=== PATIENT | male | born 1950 | race Caucasian/White ===

== ENCOUNTER 2019-02-03 16:30 | Inpatient (IN) ==
--- NOTE | 2019-02-03 16:46 | Emergency Department Note ---
Disposition Clinical Impression: Ureterolithiasis Disposition: Admitted As Inpatient Condition: Fair [facility] Provider[facility] - Forms: ED Satisfaction Letter, Work/School Release General Adult HPI - General Chief complaint: ED Abdominal Pain Stated complaint: kidney stones Time Seen by Provider: 02/03/19 16:36 Source: patient Limitations: no limitations Nursing Notes Reviewed: Yes Vital Signs Reviewed: Yes - History of Present Illness HPI Narrative: 37-year-old male presents emergency department with concern for left mid ureteral stone of 10 mm. Patient has history of ureterolithiasis requiring intervention in the past. He states that the pain started today. Patient was at the [facility]. He received a CT scan of the abdomen and pelvis that revealed the above findings. There was evidence of hydronephrosis as well. There was blood in his urine, but no evidence of nitrites and leukocyte esterase. Patient is given Toradol which controlled his pain, was feeding the patient, he states that he was in a lot of pain today and request that he stay in case the pain gets worse as he has experienced these stones in the past and has had issues with pain control and he does not feel comfortable going home. Pain Scale: 1 - Related Data Allergies Allergy/AdvReac Type Severity Reaction Status Date / Time Penicillins Allergy See Verified 02/03/19 16:35 Comments All systems ED: reviewed and negative except as stated. Review of Systems: As Per HPI Constitutional: Denies: fever Cardiovascular: Denies: chest pain Gastrointestinal: Reports: abdominal pain. Denies: nausea, vomiting Genitourinary: Denies: urgency, dysuria Musculoskeletal: Reports: back pain Past Medical History - Past Medical History Attestation: Yes The following information was validated with the patient. Source: patient Medical history: Reports: diabetes, hyperlipidemia, hypertension, other - Social History Smoking Status: Current every day smoker Smokeless Tobacco Status: No Alcohol use: Reports: none Drug use: Reports: none Physical Exam - General Limitations: no limitations General appearance: alert, in no apparent distress - Head Head exam: normocephalic - Eye Eye exam: Present: EOMI - ENT ENT exam: mucous membranes moist - Neck Neck exam: Present: trachea midline - Chest Chest inspection: Present: symmetric chest wall rise - Respiratory Respiratory exam: Present: normal lung sounds bilaterally. Absent: respiratory distress - Cardiovascular Cardiovascular exam: Present: regular rate, normal rhythm - Abdominal Exam Abdominal exam: Present: soft, tenderness. Absent: distention, guarding, rebound, rigidity - Extremities Exam Extremities exam: Present: normal capillary refill - Back Exam Back exam: Present: full ROM. Absent: CVA tenderness (R), CVA tenderness (L) - Neurological Exam Neurological exam: Present: alert, oriented X3 - Psychiatric Psychiatric exam: Present: normal affect, normal mood - Skin Skin exam: Present: warm, dry, intact, normal color. Absent: rash Course Vital Signs Temperature 97.6 F 02/03/19 16:35 Pulse Rate 71 02/03/19 16:35 Respiratory Rate 16 02/03/19 16:35 Blood Pressure 157/119 02/03/19 16:35 O2 Sat by Pulse Oximetry 99 02/03/19 16:35 Temperature 97.6 F 02/03/19 16:35 Pulse Rate 71 02/03/19 16:35 Respiratory Rate 16 02/03/19 16:35 Blood Pressure 157/119 02/03/19 16:35 O2 Sat by Pulse Oximetry 99 02/03/19 16:35 Oxygen Delivery Oxygen Delivery Room Air Medical Decision Making - MDM Narrative Medical decision making narrative: 68-year-old male with mid left ureteral stone requesting admission for pain control. Patient with hydronephrosis on CT scan, but no evidence of urinary tract infection [facility] I spoke to the urologist, Dr. Holden. He agreed to accept the patient in consult. Requested to admit to medicine. We have a CBC and BMP pending at time of admission. Patient was given pain medications before arrival, and admits to being comfortable now and not requesting pain meds, but is concerned that his symptoms could worsen throughout the evening. Dr. Holden requested that we hold him nothing by mouth at this time. Dr. Ordonez agree to accept the patient for admission. - Lab Data Result diagrams: 02/03/19 17:25
--- NOTE | 2019-02-03 17:01 | Emergency Department Note ---
Disposition Clinical Impression: Ureterolithiasis Disposition: Admitted As Inpatient Condition: Fair [facility]errals: [facility] [Primary Care Provider[facility] - Forms: ED Satisfaction Letter, Work/School Release Time of Disposition: 17:26 General Adult HPI - General Chief complaint: ED Abdominal Pain Stated complaint: kidney stones Time Seen by Provider: 02/03/19 16:36 Source: patient Limitations: no limitations - History of Present Illness Pain Scale: 1 - Related Data Allergies Allergy/AdvReac Type Severity Reaction Status Date / Time Penicillins Allergy See Verified 02/03/19 16:35 Comments Past Medical History - Past Medical History Medical history: Reports: diabetes, hyperlipidemia, hypertension, other - Social History Smoking Status: Current every day smoker Smokeless Tobacco Status: No Alcohol use: Reports: none Drug use: Reports: none Physical Exam - General Limitations: no limitations General appearance: alert, in no apparent distress Course Vital Signs Temperature 97.6 F 02/03/19 16:35 Pulse Rate 71 02/03/19 16:35 Respiratory Rate 16 02/03/19 16:35 Blood Pressure 157/119 02/03/19 16:35 O2 Sat by Pulse Oximetry 99 02/03/19 16:35 Temperature 97.6 F 02/03/19 16:35 Pulse Rate 71 02/03/19 16:35 Respiratory Rate 16 02/03/19 16:35 Blood Pressure 157/119 02/03/19 16:35 O2 Sat by Pulse Oximetry 99 02/03/19 16:35 Oxygen Delivery Oxygen Delivery Room Air Attestation Statement - Attestation Attestation: I examined this patient and my medical decision-making was reviewed with the Resident Physician. I agree with the documented findings, disposition and treatment plan as described except to the extent set forth below. Patient presents to the ED with a chief complaint of flank pain. Patient was seen at the [facility] and diagnosed with a 10 mm ureteral stone. He was sent here for urology evaluation. Patient has a long-standing history of stones since he was 22 years old. His pain is significantly improved after an Ultram. Patient left-sided CVA tenderness. Plan. We will admit with urology consult. Urology has been consult. Admitted to medicine. Pain control at this time.
[2019-02-03 17:59] LABS: Basophils # 0.1 K/mcL (0.0-0.2); Basophils % 0.4 %; Eosinophils # 0.3 K/mcL (0.0-0.6); Eosinophils % 1.5 %; Hematocrit 45.1 % (37.5-50.1); Hemoglobin 15.4 g/dL (12.9-16.9); Immature Granulocytes % 1.3 % (0-4); Lymphocytes # 3.2 K/mcL (0.6-4.6); Lymphocytes % 16.2 %; Mean Corpuscular HGB Conc 34.1 g/dL (31.6-35.5); Mean Corpuscular Hemoglobin 32.4 pg (28.0-33.3); Mean Corpuscular Volume 94.7 fL (83.0-100.0); Mean Platelet Volume 9.8 fL (9.4-12.4); Monocytes # 1.3 K/mcL (0.0-1.3); Monocytes % 6.5 %; Neutrophils # 14.5 K/mcL (1.6-8.9); Platelet Count 206 K/mcL (140-400); Red Blood Count 4.76 M/mcL (4.19-5.50); Red Cell Distribution Width 12.9 % (11.5-14.5); Segmented Neutrophils % 74.1 %
[2019-02-03 18:05] LABS: BUN/Creatinine Ratio 31 (6-26); Blood Urea Nitrogen 33 mg/dL (8-23); Carbon Dioxide 28 mEq/L (23-29); Chloride 101 mEq/L (98-107); Glucose 196 mg/dL (70-105); Osmolality,Calculated 305 (280-300); Potassium 4.8 mEq/L (3.5-5.1); Sodium 141 mEq/L (136-145); eGFR For Non-African Americans > 60 (> 60)
[2019-02-03] MEDS ORDERED: Naloxone 0.4 MG/ML INJ IVP PRN (18:55)
[2019-02-03] MEDS ORDERED: Artificial Tears SOLN 15 ML BOTTLE BOTH EYES PRN (19:00)
[2019-02-03] MEDS ORDERED: Ketorolac 30 MG/ML VIAL IVP PRN (19:05)
[2019-02-03] MEDS ORDERED: *HR* OxyCODONE Immed Rel 5 MG TABLET PO PRN (19:07)
[2019-02-03] MEDS ORDERED: Dextrose Gel 15 GM/37.5 ML TUBE PO PRN ×2 (19:26)
[2019-02-03] MEDS ORDERED: D5% in Water 1,000 ML IVC PRN (19:26)
[2019-02-03] MEDS ORDERED: *HR* Dextrose 50 % in Water (Syg) 50 ML SYRINGE IVP PRN (19:26)
[2019-02-03] MEDS ORDERED: Levofloxacin 500 MG/100 ML 500 MG/100 ML BAG IVPB SCH (20:00)
[2019-02-03] MEDS: 0.9 % Sodium Chloride 1,000 ML IVC SCH (20:56)
[2019-02-03] MEDS: Gabapentin 300 MG CAPSULE PO SCH (20:59)
[2019-02-03] MEDS ORDERED: Insulin LISPRO 300 UNITS/3 ML VIAL SQ SCH (21:00)
--- NOTE | 2019-02-03 21:35 | Internal Med History&Physical ---
Date of Encounter: 02/03/19 Time of Encounter: 19:00 Internal Medicine - H&P: HPI Chief complaint: Left flank pain Admitted From: Home Plans for Post Hospital Care: Home History of present illness: The patient is a 68-year-old male. We got him from [facility] in [place], [place] today afternoon. It was today morning, when he suddenly developed severe left flank pain with radiation to left lower quadrant of his abdomen. Not associated with any nausea, vomiting or urinary symptoms. The pain got better after getting IV injection of Toradol. X-rays of his abdomen and CT of abdomen/pelvis showed a 10 mm left ureteral stone with same side hydronephrosis. The patient he has had history of nephrolithiasis. PAST MEDICAL HX: He is treated for coronary artery disease (head CABG surgery in 2000), type 2 diabetes mellitus, hypertension and hyperlipidemia. He has inserted a pacemaker/defibrillator (he was in cardiac arrest on several occasions, after his cardiac surgery). PAST FAMILY HX: Positive for hypertension. PAST SOCIAL HX: He smokes average 10 cigarettes per dayused to smoke more per day beforestarted as a teenager. He denies alcohol and illicit drugs use. REVIEW OF SYSTEMS: All 14 organ systems were reviewed by me with the patient. Positive and pertinent negative findings are listed above. The rest of organ systems is negative. PHYSICAL EXAM: Skin: Free of rash and discoloration. Eyes: Sclera is white. There is no discharge from eyes. ENMT: Oral/pharyngeal mucosa is normal in appearance. There is no discharge from nose or ears. Respiratory: Normal breath sounds with no crackles and wheezes bilaterally. CV: Heart is regular with no gallop or murmur. GI: Abdomen is flat and soft with no palpable mass or visceromegaly. : There is tenderness in the area of his left flank. His right flank is not tender. Neuro exam: He has good strength in upper and lower extremities. He has normal eye movements. Psychiatric: He has normal affect. His thought process is appropriate to the situation. ADDITIONAL DATA: X-ray of abdomen and CT of abdomen/pelvis showed a 10 mm left ureteral stone with same side hydronephrosis. Hemoglobin is 15.4 with WBC of 19.6 thousand and normal platelet count. BMP shows BUN of 33 with creatinine of 1.07 and random glucose of 196. Otherwise, it is normal. A/P: Left ureteral stone with same side hydronephrosis. Urology is consulted. The patient will stay nothing by mouth except of medications. I will give him IV normal saline at 100 mL/h. He will get when necessary oral oxycodone and/or IV Toradol to control his pain. I am ordering UAE with reflex micro-/culture. I will put him on IV Levaquin, as he has high WBC count. Coronary artery disease. Stable. Continue Lopressor and Lipitor. I will restart his aspirinafter urologic procedures. Type 2 diabetes mellitus. He was on diabetic diet and metformin at home. I will offer him when necessary Humalog. His other problems are mentioned above in past medical history. That is stable/under control. Past Med Surg Social Fam HX - Past Medical History Medical history: diabetes, hyperlipidemia, hypertension, other Additional medical history: kidney stones - Social History Smoking Status: Current every day smoker Smokeless Tobacco Status: No Alcohol use: none Drug use: none Internal Medicine - H&P: Meds Atorvastatin [Lipitor] 40 mg PO HS 02/03/19 [History] Carboxymethylcellulose Sodium [Refresh Celluvisc] 1 each BOTH EYES TID PRN 02/03/19 [History] Gabapentin [Neurontin] 600 mg PO TID 02/03/19 [History] Lisinopril-HCTZ 20-12.5 [Prinzide 20-12.5] 1 tab PO QAM 02/03/19 [History] Metformin HCl [Glucophage] 500 mg PO BID 02/03/19 [History] Metoprolol Tartrate 75 mg PO BID 02/03/19 [History] Naproxen [Naprosyn] 500 mg PO BID 02/03/19 [History] Sildenafil Citrate 100 mg PO PRN PRN 02/03/19 [History] Allergy/AdvReac Type Severity Reaction Status Date / Time Penicillins Allergy See Verified 02/03/19 16:35 Comments - Constitutional Vitals: Temp Pulse Resp BP Pulse Ox 97.5 F L 86 18 136/78 98 02/03/19 21:22 02/03/19 21:22 02/03/19 21:22 02/03/19 21:22 02/03/19 21:22 General appearance: Present: A&O X 3, no acute distress, answers questions appropriately Exam: xx Internal Med - H&P Results - Labs CBC & Chem 7: 02/03/19 17:25 02/03/19 17:25 Labs: Short CBC 02/03/19 Range/Units 17:25 WBC 19.6 H (4.3-11.1) K/mcL Hgb 15.4 (12.9-16.9) g/dL Hct 45.1 (37.5-50.1) % Plt Count 206 (140-400) K/mcL Neutrophils # 14.5 H (1.6-8.9) K/mcL BMP 02/03/19 17:25 Sodium 141 Potassium 4.8 Chloride 101 Carbon Dioxide 28 BUN 33 H Creatinine 1.07 Glucose 196 H Calcium 10.0 - Assessment and Plan (1) Ureteral stone with hydronephrosis Current Visit: Yes Status: Acute (2) Leukocytosis Current Visit: Yes Status: Acute Qualifiers: Leukocytosis type: unspecified Qualified Code(s): D72.829 - Elevated white blood cell count, unspecified (3) CAD (coronary artery disease) Current Visit: Yes Status: Chronic Qualifiers: Coronary Disease-Associated Artery/Lesion type: [place] artery [place] vs. transplanted heart: [place] heart Associated angina: without angina Qualified Code(s): I25.10 - Atherosclerotic heart disease of [place] coronary artery without angina pectoris (4) T2DM (type 2 diabetes mellitus) Current Visit: Yes Status: Acute Qualifiers: Diabetes mellitus assisted insulin use: without assisted use Diabetes mellitus complication status: without complication Qualified Code(s): E11.9 - Type 2 diabetes mellitus without complications - Time Spent With Patient Total time spent is greater than 50% in coordination of care (as documented) at patient's floor/unit and/or counseling patient: 25 - 35 minutes
[2019-02-03] MEDS ORDERED: Nicotine 14 MG PATCH.TD24 TD SCH (22:45)
[2019-02-04 03:08] LABS: Bilirubin,Urine Negative (Negative); Blood,Urine Large (Negative); Clarity,Urine Cloudy (Clear); Color,Urine Dark Yellow (Yellow); Glucose,Urine (UA) Normal (Normal); Ketones,Urine Negative (Negative); Leukocyte Esterase,Urine Negative (Negative); Nitrite,Urine Negative (Negative); PH,Urine 5.5 pH Units (5.0-8.0); Protein,Urine 100 mg/dL (Neg-Trace); Specific Gravity,Urine 1.025 (1.010-1.025); Urobilinogen,Urine Normal (Normal)
[2019-02-04 03:27] LABS: Hyaline Casts,Urine Moderate per lpf (None-Few); Mucus,Urine Many (Few); Squamous Epithelial Cell,Urine Few per lpf (None-Few)
[2019-02-04 03:28] LABS: Bacteria,Urine Few per hpf (None-Few); Calcium Oxalate Crystals,Urine Present; WBC,Urine 0-3 per hpf (0-3)
[2019-02-04] MEDS: Insulin LISPRO 300 UNITS/3 ML VIAL SQ SCH ×3 (08:52→20:11)
[2019-02-04] MEDS: Gabapentin 300 MG CAPSULE PO SCH ×3 (08:52→22:57)
[2019-02-04] MEDS: 0.9 % Sodium Chloride 1,000 ML IVC SCH (08:52)
[2019-02-04] MEDS ORDERED: Lisinopril-HCTZ 20-12.5mg TABLET PO SCH (09:00)
--- NOTE | 2019-02-04 09:10 | Urology - Consult Note ---
<Maribell Spence N - Last Filed: 02/04/19 09:06> Date of Encounter: 02/04/19 Time of Encounter: 08:15 - Assessment and Plan (1) Ureteral stone with hydronephrosis Current Visit: Yes Status: Acute Assessment and plan: Patient is a 68-year-old male who presents with a 10 mm left ureteral stone with hydronephrosis. Discussed surgical risks and benefits with patient. Patient verbalized understanding, consent has been signed. Patient is prepared undergo a cystoscopy, left ureteroscopic stone extraction with or without holmium laser lithotripsy, basket retrieval, left retrograde pyelogram, and left ureteral stent placement later today with Dr. Holden. Patient remained nothing by mouth. Urology CN:HPI Consult date: 02/04/19 Reason for consult Urology: Other (left ureteral stone with hydronephrosis) Requesting physician: Martin Rivera History of present illness: Patient is a 68-year-old male who presents with a 10 mm left ureteral stone and left-sided hydronephrosis. Patient initially presented to the [facility] with complaints of left flank pain radiating to the left groin. Patient underwent a CT scan of abdomen and pelvis revealing a large, 10 mm left ureteral stone and hydronephrosis. Patient was subsequently transferred to [facility] for urologic intervention. Patient states he has a long-standing history of renal stones with his last stone occurring approximately 5 years ago treated by ureteroscopy with Dr. Muse. Patient denies any fever, chills, dysuria, gross hematuria or incontinence. Patient has a significant family history of renal stones through his brother and 2 of his sons. Past Med Surg Social Fam HX - Past Medical History Medical history: diabetes, hyperlipidemia, hypertension, other Additional medical history: kidney stones Psychiatric history: no psych history - Past Surgical History Surgical History: appendectomy, coronary bypass (CABG), pacemaker/AICD - Social History Smoking Status: Current every day smoker Packs per day: 1 Smokeless Tobacco Status: No Alcohol use: none Drug use: none - Family History Mother Hx Family Cardiac Disorders: Yes (HTN) Father Hx Family Cancer: Yes Medications and Allergies Atorvastatin [Lipitor] 40 mg PO HS 02/03/19 [History] Carboxymethylcellulose Sodium [Refresh Celluvisc] 1 each BOTH EYES TID PRN 02/03/19 [History] Gabapentin [Neurontin] 600 mg PO TID 02/03/19 [History] Lisinopril-HCTZ 20-12.5 [Prinzide 20-12.5] 1 tab PO QAM 02/03/19 [History] Metformin HCl [Glucophage] 500 mg PO BID 02/03/19 [History] Metoprolol Tartrate 75 mg PO BID 02/03/19 [History] Naproxen [Naprosyn] 500 mg PO BID 02/03/19 [History] Sildenafil Citrate 100 mg PO PRN PRN 02/03/19 [History] Allergy/AdvReac Type Severity Reaction Status Date / Time Penicillins Allergy See Verified 02/03/19 16:35 Comments Review of Systems - Constitutional no chills, no fatigue, no fever(s) - EENT Nose, mouth and throat: no dizziness, no headache(s) - Cardiovascular no chest pain, no diaphoresis, no dyspnea - Respiratory no cough, no dyspnea - Gastrointestinal abdominal pain, no nausea, no vomiting - Genitourinary flank pain, no change in urinary stream, no dysuria, no hematuria, no urinary frequency, no urinary hesitancy, no urinary incontinence, no urinary urgency - Musculoskeletal back pain, no muscle weakness - Integumentary no erythema, no rash - Neurological no confusion, no syncope - Psychiatric no anxiety, no confusion - Hematologic/Lymphatic no easy bleeding, no easy bruising - Allergic/Immunologic no throat swelling, no wheezing Exam Initial Vital Signs Temp Pulse Resp BP Pulse Ox 97.6 F 71 16 157/119 99 02/03/19 16:35 02/03/19 16:35 02/03/19 16:35 02/03/19 16:35 02/03/19 16:35 - General physical appearance Present: well developed, no distress, no pain - Eyes Present: PERRL, normal ocular movement - ENT Present: normal nares, no hearing loss, no congestion - Neck Present: no masses, trachea midline, no lymphadenopathy - Respiratory Present: normal respiratory effort - Cardiovascular Cardiovascular exam IM: RRR - Abdomen Abdomen: Present: soft, non tender. Absent: guarding, distended - Integumentary Present: no rash, no abnormal pigmentation - Neurologic Present: normal coordination - Musculoskeletal Present: other (normal posture ) Urology Results - Labs 02/03/19 17:25 02/03/19 17:25 Abnormal lab results WBC 19.6 K/mcL (4.3-11.1) H 02/03/19 17:25 Neutrophils # 14.5 K/mcL (1.6-8.9) H 02/03/19 17:25 BUN 33 mg/dL (8-23) H 02/03/19 17:25 BUN/Creatinine Ratio 31 (6-26) H 02/03/19 17:25 Glucose 196 mg/dL (70-105) H 02/03/19 17:25 POC Glucose 131 mg/dL (70-99) H 02/04/19 05:50 Calculated Osmolality 305 (280-300) H 02/03/19 17:25 Urine Clarity Cloudy (Clear) A 02/04/19 03:00 Urine Protein 100 mg/dL (Neg-Trace) H 02/04/19 03:00 Urine Blood Large (Negative) H 02/04/19 03:00 Hyaline Casts Moderate per lpf (None-Few) H 02/04/19 03:00 Urine Mucus Many (Few) H 02/04/19 03:00 Diabetes panel 02/03/19 Range/Units 17:25 Sodium 141 (136-145) mEq/L Potassium 4.8 (3.5-5.1) mEq/L Chloride 101 (98-107) mEq/L Carbon Dioxide 28 (23-29) mEq/L BUN 33 H (8-23) mg/dL Creatinine 1.07 (0.70-1.30) mg/dL Glucose 196 H (70-105) mg/dL Calcium 10.0 (8.6-10.3) mg/dL Calcium panel 02/03/19 Range/Units 17:25 Calcium 10.0 (8.6-10.3) mg/dL Pituitary panel 02/03/19 Range/Units 17:25 Sodium 141 (136-145) mEq/L Potassium 4.8 (3.5-5.1) mEq/L Chloride 101 (98-107) mEq/L Carbon Dioxide 28 (23-29) mEq/L BUN 33 H (8-23) mg/dL Creatinine 1.07 (0.70-1.30) mg/dL Glucose 196 H (70-105) mg/dL Calcium 10.0 (8.6-10.3) mg/dL Adrenal panel 02/03/19 Range/Units 17:25 Sodium 141 (136-145) mEq/L Potassium 4.8 (3.5-5.1) mEq/L Chloride 101 (98-107) mEq/L Carbon Dioxide 28 (23-29) mEq/L BUN 33 H (8-23) mg/dL Creatinine 1.07 (0.70-1.30) mg/dL Glucose 196 H (70-105) mg/dL Calcium 10.0 (8.6-10.3) mg/dL All other labs normal. Consult Discharge Plan - Plan Referrals: [facility] [Outside] <Brian Holden - Last Filed: 02/04/19 18:54> Date of Encounter: 02/04/19 - Assessment and Plan (1) Ureterolithiasis Current Visit: Yes Status: Acute Assessment and plan: Transferred from [facility] for a 10 mm obstructing left ureteral calculus. Patient is not toxic. Urine is not infected. Discussed risks benefits alternatives of definitive address right ureteroscopy holmium laser lithotripsy. Plan: Add on surgery scheduled for ureteroscopy holmium laser lithotripsy (2) Hydronephrosis Current Visit: Yes Status: Acute Assessment and plan: Secondary to ureteral calculus. Plan: Urinary diversion with ureteral stent placement Qualifiers: Hydronephrosis type: with ureteral calculous obstruction Qualified Code(s): N13.2 - Hydronephrosis with renal and ureteral calculous obstruction (3) Flank pain Current Visit: Yes Status: Acute Assessment and plan: Secondary to hydronephrosis from acute obstruction due to ureteral calculus. Plan: Ureteroscopic address of left ureteral calculus (4) T2DM (type 2 diabetes mellitus) Current Visit: Yes Status: Acute Assessment and plan: Complicating factor to surgical intervention and postoperative healing. Qualifiers: Diabetes mellitus local intermodal truck driver insulin use: without local intermodal truck driver use Diabetes mellitus complication status: without complication Qualified Code(s): E11.9 - Type 2 diabetes mellitus without complications Exam Initial Vital Signs Temp Pulse Resp BP Pulse Ox 97.6 F 71 16 157/119 99 02/03/19 16:35 02/03/19 16:35 02/03/19 16:35 02/03/19 16:35 02/03/19 16:35 Urology Results - Labs 02/04/19 09:18 02/04/19 09:18 Abnormal lab results WBC 11.6 K/mcL (4.3-11.1) H 02/04/19 09:18 BUN 36 mg/dL (8-23) H 02/04/19 09:18 BUN/Creatinine Ratio 39 (6-26) H 02/04/19 09:18 Glucose 135 mg/dL (70-105) H 02/04/19 09:18 POC Glucose 131 mg/dL (70-99) H 02/04/19 05:50 Urine Clarity Cloudy (Clear) A 02/04/19 03:00 Urine Protein 100 mg/dL (Neg-Trace) H 02/04/19 03:00 Urine Blood Large (Negative) H 02/04/19 03:00 Hyaline Casts Moderate per lpf (None-Few) H 02/04/19 03:00 Urine Mucus Many (Few) H 02/04/19 03:00 Diabetes panel 02/04/19 Range/Units 09:18 Sodium 136 (136-145) mEq/L Potassium 4.2 (3.5-5.1) mEq/L Chloride 102 (98-107) mEq/L Carbon Dioxide 25 (23-29) mEq/L BUN 36 H (8-23) mg/dL Creatinine 0.92 (0.70-1.30) mg/dL Glucose 135 H (70-105) mg/dL Calcium 8.9 (8.6-10.3) mg/dL Calcium panel 02/04/19 Range/Units 09:18 Calcium 8.9 (8.6-10.3) mg/dL Pituitary panel 02/04/19 Range/Units 09:18 Sodium 136 (136-145) mEq/L Potassium 4.2 (3.5-5.1) mEq/L Chloride 102 (98-107) mEq/L Carbon Dioxide 25 (23-29) mEq/L BUN 36 H (8-23) mg/dL Creatinine 0.92 (0.70-1.30) mg/dL Glucose 135 H (70-105) mg/dL Calcium 8.9 (8.6-10.3) mg/dL Adrenal panel 02/04/19 Range/Units 09:18 Sodium 136 (136-145) mEq/L Potassium 4.2 (3.5-5.1) mEq/L Chloride 102 (98-107) mEq/L Carbon Dioxide 25 (23-29) mEq/L BUN 36 H (8-23) mg/dL Creatinine 0.92 (0.70-1.30) mg/dL Glucose 135 H (70-105) mg/dL Calcium 8.9 (8.6-10.3) mg/dL All other labs normal. - Imaging CT scan - abdomen: report reviewed, image reviewed CT scan - pelvis: report reviewed, image reviewed
[2019-02-04 09:44] LABS: Basophils # 0.1 K/mcL (0.0-0.2); Basophils % 0.4 %; Eosinophils # 0.3 K/mcL (0.0-0.6); Eosinophils % 2.7 %; Hematocrit 43.9 % (37.5-50.1); Hemoglobin 15.4 g/dL (12.9-16.9); Immature Granulocytes % 1.1 % (0-4); Lymphocytes # 3.7 K/mcL (0.6-4.6); Lymphocytes % 32.2 %; Mean Corpuscular HGB Conc 35.1 g/dL (31.6-35.5); Mean Corpuscular Hemoglobin 32.2 pg (28.0-33.3); Mean Corpuscular Volume 91.6 fL (83.0-100.0); Mean Platelet Volume 9.9 fL (9.4-12.4); Monocytes # 0.9 K/mcL (0.0-1.3); Monocytes % 7.8 %; Neutrophils # 6.5 K/mcL (1.6-8.9); Platelet Count 183 K/mcL (140-400); Red Blood Count 4.79 M/mcL (4.19-5.50); Red Cell Distribution Width 13.1 % (11.5-14.5); Segmented Neutrophils % 55.8 %
[2019-02-04 10:06] LABS: BUN/Creatinine Ratio 39 (6-26); Blood Urea Nitrogen 36 mg/dL (8-23); Calcium 8.9 mg/dL (8.6-10.3); Carbon Dioxide 25 mEq/L (23-29); Chloride 102 mEq/L (98-107); Glucose 135 mg/dL (70-105); Osmolality,Calculated 292 (280-300); Potassium 4.2 mEq/L (3.5-5.1); Sodium 136 mEq/L (136-145); eGFR For Non-African Americans > 60 (> 60)
--- NOTE | 2019-02-04 17:35 | Anesthesia Evaluation PreOp ---
Date of Encounter: 02/04/19 Time of Encounter: 17:44 - Past History Planned Operation: CYSTO, LEFT RETROGRADE, URETEROSCOPY, STENT Cardiac History: [place], HTN, Hyperlipidemia, Cardiac Surgery (CABG 2000), Pacemaker/ICD ([employer]ON[employer] AICD, AAI, NOT PACER DEPENDENT), Other (NORMAL EF) Pulmonary History: Denies Any Significant HX SOCIAL MEDIA MARKETING MANAGER History: Denies Any Significant HX Other Medical History: Diabetes Type II Anesthesia History: No Prior Anesthetic Complications, Past Anesthesia Alcohol Use: none Drug use: none Medications and Allergies Atorvastatin [Lipitor] 40 mg PO HS 02/03/19 [History] Carboxymethylcellulose Sodium [Refresh Celluvisc] 1 each BOTH EYES TID PRN 02/03/19 [History] Gabapentin [Neurontin] 600 mg PO TID 02/03/19 [History] Lisinopril-HCTZ 20-12.5 [Prinzide 20-12.5] 1 tab PO QAM 02/03/19 [History] Metformin HCl [Glucophage] 500 mg PO BID 02/03/19 [History] Metoprolol Tartrate 75 mg PO BID 02/03/19 [History] Naproxen [Naprosyn] 500 mg PO BID 02/03/19 [History] Sildenafil Citrate 100 mg PO PRN PRN 02/03/19 [History] Allergy/AdvReac Type Severity Reaction Status Date / Time Penicillins Allergy See Verified 02/03/19 16:35 Comments - Meds/Allergy Pre-op Review Medications Reviewed: Yes Allergies Reviewed: Yes Beta Blockers on Current Med List: Yes If Beta Blockers taken, Date/Time (Last Dose taken): 0900 Anesthesia Results - Labs 02/04/19 09:18 02/04/19 09:18 Anesthesia Exam Vital Signs/O2 Sat/Glucose, Most Recent Temp Pulse Resp BP Pulse Ox 98.2 F 60 15 144/84 95 02/04/19 14:46 02/04/19 14:46 02/04/19 14:46 02/04/19 14:46 02/04/19 14:46 Blood Glucose* 130 Weight: 88 KG - BMI 36 - HEENT Mallampati: I Teeth: Missing Denture Type: Upper: Complete Oral Opening: Greater than 3 - Cardiac Rhythm: Regular - Pulmonary Breath Sounds: bilateral Clear Respiratory Effort: Symmetrical Anesthesia Assess/Plan ASA Score: 3 Anesthetic Plan: General Monitoring Plan: Standard Monitors Recovery Plan: PACU
[2019-02-04] MEDS ORDERED: Isovue-300 50 ML VIAL ONE (17:39)
[2019-02-04] MEDS ORDERED: *HR* Propofol 200 MG/20 ML VIAL IVP ONE (17:47)
[2019-02-04] MEDS ORDERED: *HR* FentaNYL (PF) 100 MCG/2 ML VIAL ONE (17:47)
[2019-02-04] MEDS ORDERED: Lidocaine -MPF 2% 2 ML VIAL ONE (17:49)
[2019-02-04] MEDS ORDERED: Dexamethasone 4 MG/ML VIAL ONE (17:50)
[2019-02-04] MEDS ORDERED: Ondansetron 4 MG/2 ML VIAL ONE (17:50)
[2019-02-04] MEDS ORDERED: Ketorolac 30 MG/ML VIAL ONE (17:51)
[2019-02-04] MEDS ORDERED: EPHEDrine 50 MG/ML VIAL ONE (18:22)
[2019-02-04] MEDS ORDERED: *HR* Promethazine 25 MG/ML VIAL IVP PRN ×2 (18:40→19:56)
[2019-02-04] MEDS ORDERED: Acetaminophen IV 1,000 MG/100 ML INFUS..BTL IVPB ONE ×2 (18:40→19:56)
[2019-02-04] MEDS ORDERED: Albuterol 2.5 MG/3 ML NEBULIZER IH ONE ×2 (18:40→19:56)
[2019-02-04] MEDS ORDERED: Ondansetron 4 MG/2 ML VIAL IVP ONE ×2 (18:40→19:56)
[2019-02-04] MEDS ORDERED: *HR* Meperidine 25 MG/ML SYRINGE IVP PRN ×2 (18:40→19:56)
[2019-02-04] MEDS ORDERED: *HR* HYDROmorphone (PF) 1 MG/ML SYRINGE IVP PRN ×2 (18:40→19:56)
--- NOTE | 2019-02-04 18:50 | Operative Note ---
Date of procedure: 02/04/19 Pre-op diagnosis: Left ureteral calculus Post-op diagnosis: same Procedure: Cystoscopy, left retrograde ureteral pyelography with intraoperative interpretation of radiographic images in real time by surgeon to facilitate procedure, left ureteroscopy, holmium laser lithotripsy, left double-J stent placement Implants: 6 x 26 left double-J stent Complications: None Anesthesia: GETA Surgeon: Brian Holden Was there an travel assistant present: No Estimated blood loss (cc): 2 Specimen: none Condition: stable Disposition: PACU Procedure in Detail: Cystoscopy with LEFT Retrograde Pyelography, Intraoperative Interpretation of all Radiographic Images in Real Time by Surgeon (necessary for succesful completion of procedure), Ureteroscopy, Holmium Laser Lithotripsy of Ureteral Calculus, Retrograde Placement of Ureteral Stent under Flouroscopic Guidance: The patient was brought to the operating theater, identified by name, date of and medical record number. He was administered a general anesthetic. The patient was positioned in dorsal lithotomy then prepped and draped in sterile fashion. The cystoscope was inserted into the urethral meatus and advanced toward the bladder under direct visualization. No abnormalities of the urethra were appreciated. No abnormalities of the bladder were appreciated. An open-ended catheter was placed into the ipsilateral ureter and with gentle injection of contrast a retrograde pyelogram was performed. Real-time interpretation of these radiographic images were performed by pollo. These images revealed a radiopaque filling defect in the mid left ureter with proximal hydroureteronephrosis. Based on intraoperative interpretation of these images the following procedure was indicated: A Glidewire was passed through the open-ended catheter and into the ipsilateral renal pelvis. The cystoscope and open-ended ureteral catheter were removed leaving the Glidewire in place. Alongside the Glidewire and under direct vision a rigid ureteroscope was advanced through the urethra, bladder and into the ureter. Under direct vision the ureteroscope was advanced in the ureter until the stone was encountered. Once the stone was encountered a 365 holmium laser fiber was obtained and placed on a setting of 0.5 and a rate of 15. The stone was easily fragmented into multiple small pieces which were felt to be of easily passable and non-clinically significant size. At this point the ureteroscope was removed. Over the existing Glidewire a 6- [place] ureteral stent was placed under fluoroscopic guidance. Once the stent was felt to be in good position the Glidewire was removed. Real-time fluoroscopy confirmed proper stent placement. Patient's bladder was drained of irrigant and this ended the operative procedure. The patient tolerated the procedure well. There are no complications. The patient was awakened in the operating theater, extubated and transferred to recovery in stable condition. Complications: None Findings: Ureteral Calculus EBL: 2ml Specimen: None Implants: ureteral JJ stent Surgeron: Brian Holden MD
--- NOTE | 2019-02-04 18:56 | Urology Progress Note ---
Date of Encounter: 02/04/19 Time of Encounter: 18:55 - Assessment and Plan (1) Ureterolithiasis Current Visit: Yes Status: Acute Assessment and plan: Uncomplicated ureteroscopy holmium laser lithotripsy and placement of left doub le-J stent for a large obstructing left ureteral calculus. Okay for discharge from urology standpoint anytime post procedure. My office will call patient and arrange follow-up for stent removal. (2) Hydronephrosis Current Visit: Yes Status: Acute Qualifiers: Hydronephrosis type: with ureteral calculous obstruction Qualified Code(s): N13.2 - Hydronephrosis with renal and ureteral calculous obstruction (3) Flank pain Current Visit: Yes Status: Acute (4) T2DM (type 2 diabetes mellitus) Current Visit: Yes Status: Acute Qualifiers: Diabetes mellitus care home insulin use: without care home use Diabetes mellitus complication status: without complication Qualified Code(s): E11.9 - Type 2 diabetes mellitus without complications Objective Initial Vital Signs Temp Pulse Resp BP Pulse Ox 97.6 F 71 16 157/119 99 02/03/19 16:35 02/03/19 16:35 02/03/19 16:35 02/03/19 16:35 02/03/19 16:35 - Labs 02/04/19 09:18 02/04/19 09:18 Diabetes panel 02/04/19 Range/Units 09:18 Sodium 136 (136-145) mEq/L Potassium 4.2 (3.5-5.1) mEq/L Chloride 102 (98-107) mEq/L Carbon Dioxide 25 (23-29) mEq/L BUN 36 H (8-23) mg/dL Creatinine 0.92 (0.70-1.30) mg/dL Glucose 135 H (70-105) mg/dL Calcium 8.9 (8.6-10.3) mg/dL Calcium panel 02/04/19 Range/Units 09:18 Calcium 8.9 (8.6-10.3) mg/dL Pituitary panel 02/04/19 Range/Units 09:18 Sodium 136 (136-145) mEq/L Potassium 4.2 (3.5-5.1) mEq/L Chloride 102 (98-107) mEq/L Carbon Dioxide 25 (23-29) mEq/L BUN 36 H (8-23) mg/dL Creatinine 0.92 (0.70-1.30) mg/dL Glucose 135 H (70-105) mg/dL Calcium 8.9 (8.6-10.3) mg/dL Adrenal panel 02/04/19 Range/Units 09:18 Sodium 136 (136-145) mEq/L Potassium 4.2 (3.5-5.1) mEq/L Chloride 102 (98-107) mEq/L Carbon Dioxide 25 (23-29) mEq/L BUN 36 H (8-23) mg/dL Creatinine 0.92 (0.70-1.30) mg/dL Glucose 135 H (70-105) mg/dL Calcium 8.9 (8.6-10.3) mg/dL Consult Discharge Plan - Plan Referrals: [facility] [Outside]
[2019-02-04] MEDS ORDERED: Dextrose Gel 15 GM/37.5 ML TUBE PO PRN ×2 (19:56)
[2019-02-04] MEDS ORDERED: *HR* OxyCODONE Immed Rel 5 MG TABLET PO PRN (19:56)
[2019-02-04] MEDS ORDERED: *HR* Dextrose 50 % in Water (Syg) 50 ML SYRINGE IVP PRN (19:56)
[2019-02-04] MEDS ORDERED: D5% in Water 1,000 ML IVC PRN (19:56)
[2019-02-04] MEDS ORDERED: Ketorolac 30 MG/ML VIAL IVP PRN (19:56)
[2019-02-04] MEDS ORDERED: Artificial Tears SOLN 15 ML BOTTLE BOTH EYES PRN (19:56)
[2019-02-04] MEDS ORDERED: Naloxone 0.4 MG/ML INJ IVP PRN (19:56)
[2019-02-04] MEDS ORDERED: 0.9 % Sodium Chloride 1,000 ML IVC SCH (19:56)
--- NOTE | 2019-02-04 20:08 | Event Note ---
Date of Encounter: 02/04/19 Time of Encounter: 19:50 Alerted by pts. nurse AMADA Maza that the pt. was wanting to leave AMA. Pt. had ureteroscopy probably and holium laser lithotripsy and placement of left double- J stent for a large obstructing left ureteral calculus today. Went to see pt. who was sitting on the side of the bed. Family present in the room. I explained to the pt. that rather than leaving AMA, I would like to observe him overnight to ensure there were no complications such as bleeding from the procedure he just had. Family was in agreement w/pt. staying overnight. Pt. stated that he is a smoker and that he becomes irritable if he cannot smoke. Currently has 14 mg nicotine patch. I will change to 21 mg. Patient also hungry, so NPO order DCd and cardiac/ADA diet ordered per pts. PMH. Pt. and family expressed understanding and agreement to this plan. Instructed the pt. to let his nurse know immediately if he was experiencing pain or complications and I would come see him. Nurse instructed to continue monitoring patient closely and alert me immediately of any adverse changes. Patient wishes to be discharged as early as possible in the a.m., so will notify a.m. team of this request in order to help expedite discharge. Pt. to f/u w/Dr. Holden as OP as planned.
[2019-02-04] MEDS ORDERED: Levofloxacin 500 MG/100 ML 500 MG/100 ML BAG IVPB SCH (21:00)
[2019-02-04] MEDS ORDERED: Insulin LISPRO 300 UNITS/3 ML VIAL SQ SCH (21:00)
[2019-02-04] MEDS ORDERED: Nicotine 14 MG PATCH.TD24 TD SCH (22:45)
--- NOTE | 2019-02-05 00:06 | Internal Med Progress Note ---
Hospitalist Progress Note - Encounter Date of Encounter: 02/04/19 Time of Encounter: 14:00 - Subjective Interval History: SUBJECTIVE: Patient continues to have left flank pain; without nausea or vomiting. The pain is controlled with when necessary oral oxycodone and/or IV Toradol. He is waiting for his urologic procedure. OBJECTIVE: Skin: Free of rash and discoloration. ENMT: Oral/pharyngeal mucosa is normal in appearance. Eyes: Sclera is white. There is no discharge from eyes. Respiratory: Normal breath sounds; no crackles or wheezes. CV: Heart is regular; no gallop or murmur. GI: Abdomen is soft and not tender. There is no palpable mass or visceromegaly. Neuro: There is no focal deficits. ADDITIONAL DATA: UA does not show any changes typical for infection. ASSESSMENT AND PLAN: Left ureteral stone with same side hydronephrosis. He will benefit from a stent or a stent bypassing the stone. To continue when necessary pain killers. Coronary artery disease. Stable. To continue Lopressor and Lipitor. Aspirin will be started after the procedure. Type 2 diabetes mellitus. He was on diabetic diet and metformin at home. Currently, he is on when necessary Humalog. - Exam Vitals: Temp Pulse Resp BP Pulse Ox 97.6 F 57 16 117/57 97 02/04/19 23:49 02/04/19 23:49 02/04/19 23:49 02/04/19 23:49 02/04/19 23:49 Exam: xx - Assessment and Plan (1) Ureteral stone with hydronephrosis Current Visit: Yes Status: Acute (2) Leukocytosis Current Visit: Yes Status: Acute (3) CAD (coronary artery disease) Current Visit: Yes Status: Chronic (4) T2DM (type 2 diabetes mellitus) Current Visit: Yes Status: Acute - Time Spent with Patient Total time spent is greater than 50% in coordination of care (as documented) at patient's floor/unit and/or counseling patient: 25 - 35 minutes Plan of Care Discussed with: patient Internal Medicine: Result - Labs CBC & Chem 7: 02/04/19 09:18 02/04/19 09:18 Labs: Short CBC 02/04/19 Range/Units 09:18 WBC 11.6 H (4.3-11.1) K/mcL Hgb 15.4 (12.9-16.9) g/dL Hct 43.9 (37.5-50.1) % Plt Count 183 (140-400) K/mcL Neutrophils # 6.5 (1.6-8.9) K/mcL BMP 02/04/19 09:18 Sodium 136 Potassium 4.2 Chloride 102 Carbon Dioxide 25 BUN 36 H Creatinine 0.92 Glucose 135 H Calcium 8.9 Urine 02/04/19 Range/Units 03:00 Urine Color Dark Yellow (Yellow) Urine Clarity Cloudy A (Clear) Urine pH 5.5 (5.0-8.0) pH Units Ur Specific [place] 1.025 (1.010-1.025) Urine Protein 100 H (Neg-Trace) mg/dL Urine Glucose (UA) Normal (Normal) mg/dL - Impressions Impressions Retrograde Pyelogram 02/04/19 00:00 IMPRESSION: Intraprocedural fluoroscopic spot images as above. See separate procedure report for more information. D/ / 02/04/2019 19:55:30 Zena Kuo MD / monae Interpreting Provider: Zena Kuo MD Consult Discharge Plan - Plan Referrals: [facility] [Outside] Brian Holden [Partnered Physician] - (2) Leukocytosis Qualifiers: Leukocytosis type: unspecified Qualified Code(s): D72.829 - Elevated white blood cell count, unspecified (3) CAD (coronary artery disease) Qualifiers: Coronary Disease-Associated Artery/Lesion type: [place] artery [place] vs. transplanted heart: [place] heart Associated angina: without angina Qualified Code(s): I25.10 - Atherosclerotic heart disease of [place] coronary artery without angina pectoris (4) T2DM (type 2 diabetes mellitus) Qualifiers: Diabetes mellitus [employer] insulin use: without [facility] use Diabetes mellitus complication status: without complication Qualified Code(s): E11.9 - Type 2 diabetes mellitus without complications
[2019-02-05] MEDS ORDERED: Nicotine 21 MG PATCH.TD24 TD SCH (01:42)
--- NOTE | 2019-02-05 03:54 | Anesthesia Evaluation Post Op ---
Date of Encounter: 02/05/19 Time of Encounter: 19:22 - Discharge PostOp Status: Transfer Patient to floor (Patient's vital signs have been reviewed. Patient is stable postoperatively and has adequately recovered from anesthesia. Patient is determined to have stable airway patency and respiratory function including respiratory rate and oxygen saturation. Patient has a stable heart rate, blood pressure and adequate hydration. Patients mental status is acceptable. Patients temperature is appropriate. Pain and nausea are adequately controlled.)
[2019-02-05 05:42] LABS: Basophils % 0.2 %; Eosinophils % 0.4 %; Hematocrit 38.4 % (37.5-50.1); Immature Granulocytes % 1.1 % (0-4); Lymphocytes # 1.7 K/mcL (0.6-4.6); Lymphocytes % 16.6 %; Mean Corpuscular HGB Conc 34.9 g/dL (31.6-35.5); Mean Corpuscular Hemoglobin 32.3 pg (28.0-33.3); Mean Corpuscular Volume 92.5 fL (83.0-100.0); Mean Platelet Volume 9.9 fL (9.4-12.4); Monocytes # 0.5 K/mcL (0.0-1.3); Monocytes % 5.1 %; Platelet Count 163 K/mcL (140-400); Red Blood Count 4.15 M/mcL (4.19-5.50); Red Cell Distribution Width 12.8 % (11.5-14.5); Segmented Neutrophils % 76.6 %
[2019-02-05 05:43] LABS: Hemoglobin 13.4 g/dL (12.9-16.9)
[2019-02-05 06:01] LABS: BUN/Creatinine Ratio 39 (6-26); Blood Urea Nitrogen 30 mg/dL (8-23); Calcium 8.3 mg/dL (8.6-10.3); Carbon Dioxide 24 mEq/L (23-29); Chloride 102 mEq/L (98-107); Glucose 167 mg/dL (70-105); Osmolality,Calculated 294 (280-300); Potassium 4.2 mEq/L (3.5-5.1); Sodium 137 mEq/L (136-145); eGFR For Non-African Americans > 60 (> 60)
[2019-02-05] MEDS: 0.9 % Sodium Chloride 1,000 ML IVC SCH (07:11)
[2019-02-05 07:19] VITALS: BP 155/88
[2019-02-05] MEDS ORDERED: Insulin LISPRO 300 UNITS/3 ML VIAL SQ SCH (07:30)
[2019-02-05] MEDS: Gabapentin 300 MG CAPSULE PO SCH (07:37)
[2019-02-05] MEDS ORDERED: Lisinopril-HCTZ 20-12.5mg TABLET PO SCH (09:00)
--- NOTE | 2019-02-05 09:03 | Urology Progress Note ---
Date of Encounter: 02/05/19 Time of Encounter: 08:00 - Assessment and Plan (1) Ureteral stone with hydronephrosis Current Visit: Yes Status: Acute Assessment and plan: Patient is a 68-year-old male who presents one day status post cystoscopy, left retrograde ureteral pyelography with intraoperative interpretation of radiographic images in real time by surgeon to facilitate procedure, left ureteroscopy, holmium laser lithotripsy, left double-J stent placement. Vital signs are stable and afebrile. Renal function is reassuring. Discussed postoperative expectations with indwelling ureteral stent. We will plan to arrange an outpatient urology follow-up with Dr. Holden in order to proceed with cystoscopy and stent removal. Progress Note Subjective: no new complaints, feels better Narrative: POD #1. Patient seen and examined sitting upright in bed in no apparent distress. Patient reports pain is well-controlled. Patient is tolerating normal diet without nausea or vomiting. Patient states he is voiding without difficulty. Patient verbalizes desire for discharge. Objective Initial Vital Signs Temp Pulse Resp BP Pulse Ox 97.6 F 71 16 157/119 99 02/03/19 16:35 02/03/19 16:35 02/03/19 16:35 02/03/19 16:35 02/03/19 16:35 - General physical appearance Present: well developed, no distress, no pain - Respiratory Present: normal expansion, normal respiratory effort - Abdomen Present: soft, non tender. Absent: distended - Genitourinary Urine Appearance: Present: Clear - Integumentary Present: no rash, no abnormal pigmentation - Musculoskeletal Present: normal posture - Psychiatric Present: oriented to time, oriented to person, oriented to place, speech is normal, memory intact - Labs 02/05/19 04:56 02/05/19 04:56 Diabetes panel 02/04/19 02/05/19 Range/Units 09:18 04:56 Sodium 136 137 (136-145) mEq/L Potassium 4.2 4.2 (3.5-5.1) mEq/L Chloride 102 102 (98-107) mEq/L Carbon Dioxide 25 24 (23-29) mEq/L BUN 36 H 30 H (8-23) mg/dL Creatinine 0.92 0.76 (0.70-1.30) mg/dL Glucose 135 H 167 H (70-105) mg/dL Calcium 8.9 8.3 L (8.6-10.3) mg/dL Calcium panel 02/04/19 02/05/19 Range/Units 09:18 04:56 Calcium 8.9 8.3 L (8.6-10.3) mg/dL Pituitary panel 02/04/19 02/05/19 Range/Units 09:18 04:56 Sodium 136 137 (136-145) mEq/L Potassium 4.2 4.2 (3.5-5.1) mEq/L Chloride 102 102 (98-107) mEq/L Carbon Dioxide 25 24 (23-29) mEq/L BUN 36 H 30 H (8-23) mg/dL Creatinine 0.92 0.76 (0.70-1.30) mg/dL Glucose 135 H 167 H (70-105) mg/dL Calcium 8.9 8.3 L (8.6-10.3) mg/dL Adrenal panel 02/04/19 02/05/19 Range/Units 09:18 04:56 Sodium 136 137 (136-145) mEq/L Potassium 4.2 4.2 (3.5-5.1) mEq/L Chloride 102 102 (98-107) mEq/L Carbon Dioxide 25 24 (23-29) mEq/L BUN 36 H 30 H (8-23) mg/dL Creatinine 0.92 0.76 (0.70-1.30) mg/dL Glucose 135 H 167 H (70-105) mg/dL Calcium 8.9 8.3 L (8.6-10.3) mg/dL Consult Discharge Plan - Plan Referrals: [facility] [Outside] Brian Holden [Partnered Physician] -
--- NOTE | 2019-02-05 09:29 | Discharge Summary ---
Date of Encounter: 02/05/19 Time of Encounter: 09:27 - Discharge Diagnosis (1) Ureteral stone with hydronephrosis Priority: Primary Status: Acute (2) Leukocytosis Priority: Primary Status: Resolved Qualifiers: Leukocytosis type: unspecified Qualified Code(s): D72.829 - Elevated white blood cell count, unspecified (3) CAD (coronary artery disease) Priority: Secondary Status: Chronic Qualifiers: Coronary Disease-Associated Artery/Lesion type: [place] artery [place] vs. transplanted heart: [place] heart Associated angina: without angina Qualified Code(s): I25.10 - Atherosclerotic heart disease of [place] coronary artery without angina pectoris (4) T2DM (type 2 diabetes mellitus) Priority: Secondary Status: Chronic Qualifiers: Diabetes mellitus [place] insulin use: without [facility] use Diabetes mellitus complication status: without complication Qualified Code(s): E11.9 - Type 2 diabetes mellitus without complications Hospital course: Mr. Almanza is a 68 year old male Discharge discussed with: patient - Time Spent with Patient Total time spent providing and/or coordinating discharge services: Time spent: Greater than 30 minutes (35 minutes...) - Discharge Medications Prescriptions: Continue Naproxen [Naprosyn] 500 mg PO BID Atorvastatin [Lipitor] 40 mg PO HS Sildenafil Citrate 100 mg PO PRN PRN PRN Reason: Erectile Dysfunction Metoprolol Tartrate 75 mg PO BID Metformin HCl [Glucophage] 500 mg PO BID Lisinopril-HCTZ 20-12.5 [Prinzide 20-12.5] 1 tab PO QAM Gabapentin [Neurontin] 600 mg PO TID Carboxymethylcellulose Sodium [Refresh Celluvisc] 1 each BOTH EYES TID PRN PRN Reason: Dry Eye(S) Home Medications: Atorvastatin [Lipitor] 40 mg PO HS 02/03/19 [History] Carboxymethylcellulose Sodium [Refresh Celluvisc] 1 each BOTH EYES TID PRN 02/03/19 [History] Gabapentin [Neurontin] 600 mg PO TID 02/03/19 [History] Lisinopril-HCTZ 20-12.5 [Prinzide 20-12.5] 1 tab PO QAM 02/03/19 [History] Metformin HCl [Glucophage] 500 mg PO BID 02/03/19 [History] Metoprolol Tartrate 75 mg PO BID 02/03/19 [History] Naproxen [Naprosyn] 500 mg PO BID 02/03/19 [History] Sildenafil Citrate 100 mg PO PRN PRN 02/03/19 [History] Allergies/Adverse Reactions: Allergy/AdvReac Type Severity Reaction Status Date / Time Penicillins Allergy See Verified 02/03/19 16:35 Comments Date of admission: 02/03/19 18:55 Primary care physician: PCP ALFRED Consults: 02/03/19 17:06 Consult to Urology [CONS] Stat Consulting Provider: Urology Radha Reason for Consult: uterolithiasis Time Notified: 17:06 Call Completed: Yes Discharging clinician: Quan Hunt Anticipated date of discharge: 02/05/19 - Constitutional Vitals: Temp Pulse Resp BP Pulse Ox 97.8 F 60 15 155/88 94 02/05/19 07:11 02/05/19 07:11 02/05/19 07:11 02/05/19 07:11 02/05/19 07:11 General appearance: Present: A&O X 3, no acute distress, answers questions appropriately Exam: xx - Patient Status Disposition: Home, Self-Care Condition: Fair Overall status at discharge: patient is progressing back to baseline - Discharge Instructions Follow Up With: [facility] [Outside] Brian Shrestha [Partnered Physician] - Additional Instructions: FOLLOW-UP WITH DR. SHRESTHA (UROLOGY) -- IN ABOUT 2 WEEKS... FINGERSTICK FOR GLUCOSE -- ROUTINE... - Diet and Activity Activity: resume usual activities as tolerated Diet: diabetic diet
== END 2019-02-05 10:33 | disposition home or self-care (01) | DRG 661 ==
LOC: EMEROOARM 16:30 → 3ANU 16:30 → SUATTDRO 18:55 → 3ANU 20:01
PROVIDERS: ADMIT Hospitalist; ATTEND Internal Medicine

== ENCOUNTER 2021-03-08 10:11 | Inpatient (IN) ==
[2021-03-08] MEDS ORDERED: Clindamycin 900 MG/50 ML 900 MG/50 ML IV.SOLN IVPB ONE (10:29)
[2021-03-08] MEDS ORDERED: Ringers Solution, Lactated 1,000 ML IVC SCH ×2 (10:30→11:30)
[2021-03-08] MEDS ORDERED: Lidocaine -MPF 4% 5 ML AMPUL ONE (10:35)
[2021-03-08] MEDS ORDERED: *HR* Magnesium Sulfate 1 GM/2 ML VIAL ONE (10:36)
[2021-03-08] MEDS ORDERED: *HR* Midazolam HCl 2 MG/2 ML VIAL ONE (10:37)
[2021-03-08] MEDS ORDERED: Sugammadex Sodium 200 MG/2 ML VIAL IV ONE ×2 (10:37→13:37)
[2021-03-08] MEDS ORDERED: *HR* FentaNYL (PF) 100 MCG/2 ML VIAL ONE (10:37)
[2021-03-08] MEDS ORDERED: *HR* Succinylcholine 200 MG/10 ML VIAL IVP ONE (10:37)
[2021-03-08] MEDS ORDERED: Lidocaine -MPF 2% 2 ML VIAL ONE (10:37)
[2021-03-08] MEDS ORDERED: Ondansetron 4 MG/2 ML VIAL ONE (10:37)
[2021-03-08] MEDS ORDERED: *HR* Rocuronium Bromide 50 MG/5 ML VIAL ONE (10:37)
[2021-03-08] MEDS ORDERED: *HR* HYDROMORPHONE 2 MG/ML VIAL ONE (10:37)
[2021-03-08] MEDS ORDERED: Ondansetron 4 MG/2 ML VIAL IVP PRN ×2 (11:16→17:49)
[2021-03-08] MEDS ORDERED: *HR* OxyCODONE Immed Rel 5 MG TABLET PO PRN (11:16)
[2021-03-08] MEDS ORDERED: Acetaminophen IV 1,000 MG/100 ML BAG IVPB PRN (11:16)
[2021-03-08] MEDS ORDERED: *HR* HYDROmorphone PF 0.5 MG/0.5 ML SYRINGE IVP PRN (11:16)
[2021-03-08] MEDS ORDERED: *HR* Phenylephrine 10 MG/ML VIAL ONE (13:01)
[2021-03-08] MEDS ORDERED: EPHEDrine 50 MG/ML VIAL ONE (13:06)
[2021-03-08] MEDS ORDERED: *HR* Cisatracurium 10 MG/5 ML VIAL IV ONE (13:43)
[2021-03-08] MEDS ORDERED: Neostigmine Methylsulfate 3 MG/3 ML SYRINGE ONE (14:19)
[2021-03-08] MEDS ORDERED: Naloxone 0.4 MG/ML INJ IVP PRN (17:49)
[2021-03-08] MEDS ORDERED: D5% in Water 1,000 ML IVC PRN (17:49)
[2021-03-08] MEDS ORDERED: Dextrose Gel 15 GM/37.5 ML TUBE PO PRN ×2 (17:49)
[2021-03-08] MEDS ORDERED: *HR* Dextrose 50 % in Water (Vial) 50 ML VIAL IVP PRN (17:49)
[2021-03-08] MEDS: Insulin LISPRO 300 UNITS/3 ML VIAL SUBQ SCH ×2 (18:18→20:29)
[2021-03-08] MEDS: Ketorolac 15 MG/ML VIAL IVP SCH ×2 (18:19→22:56)
[2021-03-08] MEDS: 0.9 % Sodium Chloride 1,000 ML IVC SCH (18:19)
[2021-03-08] MEDS: *HR* HYDROcodone/Acet 5/325 mg TABLET PO PRN (20:25)
[2021-03-08] MEDS: Sennosides/Docusate Sodium TABLET PO SCH (20:26)
[2021-03-08] MEDS: Gabapentin 300 MG CAPSULE PO SCH (20:26)
[2021-03-08] MEDS: *HR* Metformin 500 MG TABLET PO SCH (20:27)
[2021-03-08] MEDS: Famotidine 20 MG TABLET PO SCH (20:27)
[2021-03-08] MEDS: *HR* Heparin 5,000 UNIT/ML VIAL SQ SCH (20:28)
[2021-03-08] MEDS: Ipratropium/Albuterol Neb 3 ML IH SCH ×2 (20:46→23:49)
[2021-03-09 02:14] LABS: Hematocrit 34.9 % (37.5-50.1); Hemoglobin 12.1 g/dL (12.9-16.9); Mean Corpuscular HGB Conc 34.7 g/dL (31.6-35.5); Mean Corpuscular Hemoglobin 32.4 pg (28.0-33.3); Mean Corpuscular Volume 93.6 fL (83.0-100.0); Mean Platelet Volume 10.4 fL (9.4-12.4); Platelet Count 129 K/mcL (140-400); Red Blood Count 3.73 M/mcL (4.19-5.50); Red Cell Distribution Width 12.5 % (11.5-14.5); White Blood Count 10.9 K/mcL (4.3-11.1)
[2021-03-09 02:34] LABS: % Iron Saturation 12 % (20-55); BUN/Creatinine Ratio 28 (6-26); Blood Urea Nitrogen 24 mg/dL (8-23); Carbon Dioxide 20 mEq/L (23-29); Chloride 102 mEq/L (98-107); Glucose 218 mg/dL (70-105); Iron 36 mcg/dL (65-175); Magnesium 1.8 mg/dL (1.6-2.6); Osmolality,Calculated 285 (280-300); Potassium 4.2 mEq/L (3.5-5.1); Sodium 132 mEq/L (136-145); Transferrin 209 mg/dL (203-362); eGFR For African Americans > 60 (> 60); eGFR For Non-African Americans > 60 (> 60)
[2021-03-09] MEDS: Ipratropium/Albuterol Neb 3 ML IH SCH ×5 (04:13→20:19)
[2021-03-09] MEDS: *HR* Heparin 5,000 UNIT/ML VIAL SQ SCH ×3 (06:12→23:15)
[2021-03-09] MEDS: Ketorolac 15 MG/ML VIAL IVP SCH ×3 (06:13→18:32)
[2021-03-09] MEDS: Gabapentin 300 MG CAPSULE PO SCH ×3 (07:42→19:49)
[2021-03-09] MEDS: Famotidine 20 MG TABLET PO SCH ×2 (07:42→19:49)
[2021-03-09] MEDS: Aspirin Enteric Coated 81 MG Tablet PO SCH (07:42)
[2021-03-09] MEDS: 0.9 % Sodium Chloride 1,000 ML IVC SCH (07:42)
[2021-03-09] MEDS: Sennosides/Docusate Sodium TABLET PO SCH ×2 (07:42→19:49)
[2021-03-09] MEDS: *HR* Metformin 500 MG TABLET PO SCH ×2 (07:43→19:49)
[2021-03-09] MEDS: Nicotine 7 MG PATCH.TD24 TD SCH (08:12)
[2021-03-09] MEDS: Insulin LISPRO 300 UNITS/3 ML VIAL SUBQ SCH ×4 (08:12→19:53)
[2021-03-09] MEDS ORDERED: Gabapentin 300 MG CAPSULE PO SCH (09:00)
[2021-03-09] MEDS: Lisinopril-HCTZ 20-12.5mg TABLET PO SCH (10:12)
[2021-03-09] MEDS: *HR* HYDROcodone/Acet 5/325 mg TABLET PO PRN (23:15)
[2021-03-10] MEDS: Ipratropium/Albuterol Neb 3 ML IH SCH ×7 (00:14→23:34)
[2021-03-10] MEDS: Ketorolac 15 MG/ML VIAL IVP SCH ×5 (00:46→23:28)
[2021-03-10] MEDS: *HR* HYDROcodone/Acet 5/325 mg TABLET PO PRN ×2 (04:32→11:48)
[2021-03-10] MEDS: *HR* Heparin 5,000 UNIT/ML VIAL SQ SCH ×3 (06:39→20:58)
[2021-03-10] MEDS: Lisinopril-HCTZ 20-12.5mg TABLET PO SCH (08:25)
[2021-03-10] MEDS: Famotidine 20 MG TABLET PO SCH ×2 (08:25→20:58)
[2021-03-10] MEDS: Aspirin Enteric Coated 81 MG Tablet PO SCH (08:25)
[2021-03-10] MEDS: Sennosides/Docusate Sodium TABLET PO SCH ×2 (08:25→20:57)
[2021-03-10] MEDS: *HR* Metformin 500 MG TABLET PO SCH ×2 (08:25→20:57)
[2021-03-10] MEDS: Gabapentin 300 MG CAPSULE PO SCH ×3 (08:26→20:57)
[2021-03-10] MEDS: Nicotine 7 MG PATCH.TD24 TD SCH (08:26)
[2021-03-10] MEDS: Insulin LISPRO 300 UNITS/3 ML VIAL SUBQ SCH ×4 (08:27→20:57)
[2021-03-11] MEDS: Ipratropium/Albuterol Neb 3 ML IH SCH ×6 (03:58→23:40)
[2021-03-11] MEDS: *HR* HYDROcodone/Acet 5/325 mg TABLET PO PRN (04:09)
[2021-03-11] MEDS: *HR* Heparin 5,000 UNIT/ML VIAL SQ SCH ×3 (05:05→21:03)
[2021-03-11] MEDS: Ketorolac 15 MG/ML VIAL IVP SCH ×4 (05:05→23:58)
[2021-03-11] MEDS: Lisinopril-HCTZ 20-12.5mg TABLET PO SCH (08:22)
[2021-03-11] MEDS: Gabapentin 300 MG CAPSULE PO SCH ×3 (08:22→21:02)
[2021-03-11] MEDS: Famotidine 20 MG TABLET PO SCH ×2 (08:22→21:02)
[2021-03-11] MEDS: *HR* Metformin 500 MG TABLET PO SCH ×2 (08:22→21:03)
[2021-03-11] MEDS: Sennosides/Docusate Sodium TABLET PO SCH ×2 (08:22→21:02)
[2021-03-11] MEDS: Aspirin Enteric Coated 81 MG Tablet PO SCH (08:22)
[2021-03-11] MEDS: Nicotine 7 MG PATCH.TD24 TD SCH (08:23)
[2021-03-11] MEDS: Insulin LISPRO 300 UNITS/3 ML VIAL SUBQ SCH ×4 (08:24→20:29)
[2021-03-12] MEDS: Ipratropium/Albuterol Neb 3 ML IH SCH ×6 (03:46→23:36)
[2021-03-12] MEDS: *HR* Heparin 5,000 UNIT/ML VIAL SQ SCH ×3 (05:06→20:42)
[2021-03-12] MEDS: Ketorolac 15 MG/ML VIAL IVP SCH ×4 (05:06→23:30)
[2021-03-12] MEDS: Lisinopril-HCTZ 20-12.5mg TABLET PO SCH (07:29)
[2021-03-12] MEDS: *HR* Metformin 500 MG TABLET PO SCH ×2 (07:30→20:42)
[2021-03-12] MEDS: Famotidine 20 MG TABLET PO SCH ×2 (07:30→20:42)
[2021-03-12] MEDS: Sennosides/Docusate Sodium TABLET PO SCH ×2 (07:30→20:42)
[2021-03-12] MEDS: Aspirin Enteric Coated 81 MG Tablet PO SCH (07:30)
[2021-03-12] MEDS: Nicotine 7 MG PATCH.TD24 TD SCH (07:30)
[2021-03-12] MEDS: Gabapentin 300 MG CAPSULE PO SCH ×3 (07:30→20:42)
[2021-03-12] MEDS: Insulin LISPRO 300 UNITS/3 ML VIAL SUBQ SCH ×4 (07:31→20:28)
[2021-03-12] MEDS: *HR* HYDROcodone/Acet 5/325 mg TABLET PO PRN (15:55)
[2021-03-13] MEDS: Ipratropium/Albuterol Neb 3 ML IH SCH ×2 (04:03→07:30)
[2021-03-13] MEDS: Ketorolac 15 MG/ML VIAL IVP SCH (05:33)
[2021-03-13] MEDS: *HR* Heparin 5,000 UNIT/ML VIAL SQ SCH (05:36)
[2021-03-13 07:34] VITALS: BP 146/86
[2021-03-13] MEDS: *HR* Metformin 500 MG TABLET PO SCH (07:44)
[2021-03-13] MEDS: Sennosides/Docusate Sodium TABLET PO SCH (07:44)
[2021-03-13] MEDS: Lisinopril-HCTZ 20-12.5mg TABLET PO SCH (07:44)
[2021-03-13] MEDS: Famotidine 20 MG TABLET PO SCH (07:44)
[2021-03-13] MEDS: Gabapentin 300 MG CAPSULE PO SCH (07:44)
[2021-03-13] MEDS: Insulin LISPRO 300 UNITS/3 ML VIAL SUBQ SCH (07:45)
[2021-03-13] MEDS: Aspirin Enteric Coated 81 MG Tablet PO SCH (07:45)
== END 2021-03-13 10:40 | disposition home or self-care (01) | DRG 165 ==
LOC: SAMDAY 10:11 → 2NNU 17:47
PROVIDERS: ADMIT Thoracic Surgery (Cardiothoracic Vascular Surgery); ATTEND Thoracic Surgery (Cardiothoracic Vascular Surgery)

== ENCOUNTER 2021-11-08 06:58 | Inpatient (IN) ==
[2021-11-08] MEDS ORDERED: *HR* Propofol 200 MG/20 ML VIAL IVP ONE (07:06)
[2021-11-08] MEDS ORDERED: Clindamycin 900 MG/50 ML 900 MG/50 ML IV.SOLN IVPB ONE (07:30)
[2021-11-08] MEDS ORDERED: 0.9 % Sodium Chloride 500 ML IVC SCH (07:30)
[2021-11-08] MEDS ORDERED: *HR* Labetalol 20 MG/4 ML SYRINGE IVP PRN (08:26)
[2021-11-08] MEDS ORDERED: *HR* Promethazine 25 MG/ML VIAL IVPB PRN (08:26)
[2021-11-08] MEDS ORDERED: Famotidine 20 MG/2 ML VIAL IVP ONE (08:26)
[2021-11-08] MEDS ORDERED: Acetaminophen IV 1,000 MG/100 ML BAG IVPB ONE (08:26)
[2021-11-08] MEDS ORDERED: *HR* FentaNYL (PF) 100 MCG/2 ML VIAL ONE ×2 (08:38→09:45)
[2021-11-08] MEDS ORDERED: Lidocaine -MPF 2% 5 ML VIAL ONE (08:49)
[2021-11-08] MEDS ORDERED: Ondansetron 4 MG/2 ML VIAL ONE (08:49)
[2021-11-08] MEDS ORDERED: *HR* Rocuronium Bromide 50 MG/5 ML VIAL ONE (08:49)
[2021-11-08] MEDS ORDERED: *HR* HYDROMORPHONE 2 MG/ML VIAL ONE (11:44)
[2021-11-08] MEDS ORDERED: Sugammadex Sodium 200 MG/2 ML VIAL IV ONE (11:52)
[2021-11-08] MEDS: *HR* HYDROmorphone (PF) 1 MG/ML SYRINGE IVP PRN ×2 (12:21→12:48)
[2021-11-08] MEDS ORDERED: Dextrose Gel 15 GM/37.5 ML TUBE PO PRN ×2 (13:39)
[2021-11-08] MEDS ORDERED: D5% in Water 1,000 ML IVC PRN (13:39)
[2021-11-08] MEDS ORDERED: *HR* Dextrose 50 % in Water (Syg) 50 ML SYRINGE IVP PRN (13:39)
[2021-11-08] MEDS ORDERED: Naloxone 0.4 MG/ML INJ IVP PRN (13:39)
[2021-11-08] MEDS ORDERED: Ondansetron 4 MG/2 ML VIAL IVP PRN (13:39)
[2021-11-08] MEDS: *HR* Heparin 5,000 UNIT/ML VIAL SQ SCH ×2 (14:32→21:07)
[2021-11-08] MEDS: Gabapentin 300 MG CAPSULE PO SCH ×2 (14:32→21:07)
[2021-11-08] MEDS: *HR* HYDROcodone/Acet 5/325 mg TABLET PO PRN ×2 (14:32→21:03)
[2021-11-08] MEDS ORDERED: Clindamycin 600 MG/50 ML 600 MG/50 ML IV.SOLN IVPB SCH (16:00)
[2021-11-08] MEDS: Ipratropium/Albuterol Neb 3 ML IH SCH ×3 (16:30→23:40)
[2021-11-08] MEDS: Insulin LISPRO 300 UNITS/3 ML VIAL SUBQ SCH (17:43)
[2021-11-08] MEDS: Clindamycin 600 MG/50 ML 600 MG/50 ML IV.SOLN IVPB SCH (18:05)
[2021-11-08] MEDS: *HR* Metformin 500 MG TABLET PO SCH (20:57)
[2021-11-08] MEDS ORDERED: Insulin LISPRO 300 UNITS/3 ML VIAL SUBQ SCH (21:00)
[2021-11-08] MEDS: Famotidine 20 MG TABLET PO SCH (21:07)
[2021-11-08] MEDS: Sennosides/Docusate Sodium TABLET PO SCH (21:07)
[2021-11-09] MEDS: Clindamycin 600 MG/50 ML 600 MG/50 ML IV.SOLN IVPB SCH ×2 (02:48→10:58)
[2021-11-09] MEDS: Ipratropium/Albuterol Neb 3 ML IH SCH ×6 (04:44→23:32)
[2021-11-09 05:32] LABS: Hematocrit 32.8 % (37.5-50.1); Hemoglobin 11.4 g/dL (12.9-16.9); Mean Corpuscular HGB Conc 34.8 g/dL (31.6-35.5); Mean Corpuscular Hemoglobin 31.1 pg (28.0-33.3); Mean Corpuscular Volume 89.6 fL (83.0-100.0); Mean Platelet Volume 9.4 fL (9.4-12.4); Platelet Count 205 K/mcL (140-400); Red Blood Count 3.66 M/mcL (4.19-5.50); Red Cell Distribution Width 13.1 % (11.5-14.5)
[2021-11-09 06:07] LABS: BUN/Creatinine Ratio 21 (6-26); Blood Urea Nitrogen 20 mg/dL (8-23); Calcium 8.9 mg/dL (8.6-10.3); Carbon Dioxide 23 mEq/L (23-29); Chloride 100 mEq/L (98-107); Glucose 241 mg/dL (70-105); Magnesium 1.9 mg/dL (1.6-2.6); Osmolality,Calculated 287 (280-300); Potassium 4.5 mEq/L (3.5-5.1); Sodium 133 mEq/L (136-145); eGFR For African Americans > 60 (> 60); eGFR For Non-African Americans > 60 (> 60)
[2021-11-09] MEDS: *HR* Heparin 5,000 UNIT/ML VIAL SQ SCH ×3 (06:14→20:18)
[2021-11-09] MEDS ORDERED: Gabapentin 300 MG CAPSULE PO SCH (09:00)
[2021-11-09] MEDS ORDERED: Aspirin Enteric Coated 81 MG Tablet PO SCH (09:00)
[2021-11-09] MEDS ORDERED: lisinopriL 20 MG TABLET PO SCH (09:00)
[2021-11-09] MEDS: Sennosides/Docusate Sodium TABLET PO SCH ×2 (10:56→20:16)
[2021-11-09] MEDS: Famotidine 20 MG TABLET PO SCH ×2 (10:58→20:17)
[2021-11-09] MEDS: Insulin LISPRO 300 UNITS/3 ML VIAL SUBQ SCH ×5 (11:00→20:19)
[2021-11-09] MEDS: *HR* Metformin 500 MG TABLET PO SCH ×2 (11:02→20:40)
[2021-11-09] MEDS ORDERED: *HR* HYDROcodone/Acet 5/325 mg TABLET PO PRN (13:32)
[2021-11-09] MEDS ORDERED: Dextrose Gel 15 GM/37.5 ML TUBE PO PRN ×2 (13:32)
[2021-11-09] MEDS ORDERED: Ondansetron 4 MG/2 ML VIAL IVP PRN (13:32)
[2021-11-09] MEDS ORDERED: D5% in Water 1,000 ML IVC PRN (13:32)
[2021-11-09] MEDS ORDERED: *HR* Dextrose 50 % in Water (Syg) 50 ML SYRINGE IVP PRN (13:32)
[2021-11-09] MEDS ORDERED: Naloxone 0.4 MG/ML INJ IVP PRN (13:32)
[2021-11-09] MEDS: Gabapentin 300 MG CAPSULE PO SCH ×2 (14:25→20:17)
[2021-11-09] MEDS ORDERED: Clindamycin 600 MG/50 ML 600 MG/50 ML IV.SOLN IVPB SCH (18:30)
[2021-11-10] MEDS: *HR* Metformin 500 MG TABLET PO SCH ×3 (00:33→20:12)
[2021-11-10] MEDS: Ipratropium/Albuterol Neb 3 ML IH SCH ×5 (04:09→19:52)
[2021-11-10] MEDS: *HR* Heparin 5,000 UNIT/ML VIAL SQ SCH ×3 (06:16→21:02)
[2021-11-10 09:45] LABS: Hematocrit 34.6 % (37.5-50.1); Hemoglobin 11.6 g/dL (12.9-16.9); Mean Corpuscular HGB Conc 33.5 g/dL (31.6-35.5); Mean Corpuscular Hemoglobin 30.9 pg (28.0-33.3); Mean Platelet Volume 9.2 fL (9.4-12.4); Platelet Count 231 K/mcL (140-400); Red Blood Count 3.76 M/mcL (4.19-5.50); Red Cell Distribution Width 13.6 % (11.5-14.5); White Blood Count 10.8 K/mcL (4.3-11.1)
[2021-11-10] MEDS: Insulin LISPRO 300 UNITS/3 ML VIAL SUBQ SCH ×4 (09:50→19:48)
[2021-11-10] MEDS: Aspirin Enteric Coated 81 MG Tablet PO SCH (09:53)
[2021-11-10] MEDS: Famotidine 20 MG TABLET PO SCH ×2 (09:54→20:13)
[2021-11-10] MEDS: Sennosides/Docusate Sodium TABLET PO SCH ×2 (09:54→20:12)
[2021-11-10] MEDS: lisinopriL 20 MG TABLET PO SCH (09:54)
[2021-11-10] MEDS: Gabapentin 300 MG CAPSULE PO SCH ×3 (09:54→20:13)
[2021-11-10 13:56] LABS: BUN/Creatinine Ratio 33 (6-26); Blood Urea Nitrogen 32 mg/dL (8-23); Calcium 9.1 mg/dL (8.6-10.3); Carbon Dioxide 25 mEq/L (23-29); Chloride 101 mEq/L (98-107); Glucose 153 mg/dL (70-105); Magnesium 2.1 mg/dL (1.6-2.6); Osmolality,Calculated 288 (280-300); Potassium 4.6 mEq/L (3.5-5.1); Sodium 134 mEq/L (136-145); eGFR For African Americans > 60 (> 60); eGFR For Non-African Americans > 60 (> 60)
[2021-11-11] MEDS: Ipratropium/Albuterol Neb 3 ML IH SCH ×6 (00:04→20:07)
[2021-11-11] MEDS: *HR* Heparin 5,000 UNIT/ML VIAL SQ SCH ×3 (05:12→20:54)
[2021-11-11] MEDS: Clindamycin 600 MG/50 ML 600 MG/50 ML IV.SOLN IVPB SCH (07:32)
[2021-11-11] MEDS: Insulin LISPRO 300 UNITS/3 ML VIAL SUBQ SCH ×4 (08:15→19:50)
[2021-11-11 08:18] LABS: Hematocrit 34.2 % (37.5-50.1); Hemoglobin 11.5 g/dL (12.9-16.9); Mean Corpuscular HGB Conc 33.6 g/dL (31.6-35.5); Mean Corpuscular Hemoglobin 30.8 pg (28.0-33.3); Mean Corpuscular Volume 91.7 fL (83.0-100.0); Mean Platelet Volume 8.8 fL (9.4-12.4); Platelet Count 226 K/mcL (140-400); Red Blood Count 3.73 M/mcL (4.19-5.50); Red Cell Distribution Width 13.5 % (11.5-14.5); White Blood Count 8.9 K/mcL (4.3-11.1)
[2021-11-11] MEDS: Gabapentin 300 MG CAPSULE PO SCH ×3 (08:19→20:02)
[2021-11-11] MEDS: *HR* Metformin 500 MG TABLET PO SCH ×2 (08:19→20:03)
[2021-11-11] MEDS: Aspirin Enteric Coated 81 MG Tablet PO SCH (08:19)
[2021-11-11] MEDS: Famotidine 20 MG TABLET PO SCH ×2 (08:19→20:03)
[2021-11-11] MEDS: Sennosides/Docusate Sodium TABLET PO SCH ×2 (08:20→20:03)
[2021-11-11] MEDS: lisinopriL 20 MG TABLET PO SCH (08:20)
[2021-11-11 08:39] LABS: BUN/Creatinine Ratio 33 (6-26); Blood Urea Nitrogen 29 mg/dL (8-23); Calcium 8.8 mg/dL (8.6-10.3); Carbon Dioxide 26 mEq/L (23-29); Chloride 100 mEq/L (98-107); Glucose 149 mg/dL (70-105); Osmolality,Calculated 285 (280-300); Potassium 5.2 mEq/L (3.5-5.1); Sodium 133 mEq/L (136-145); eGFR For African Americans > 60 (> 60); eGFR For Non-African Americans > 60 (> 60)
[2021-11-12] MEDS: Ipratropium/Albuterol Neb 3 ML IH SCH ×4 (00:09→11:03)
[2021-11-12 07:43] VITALS: O2SAT 96
[2021-11-12] MEDS: *HR* Heparin 5,000 UNIT/ML VIAL SQ SCH (07:51)
[2021-11-12] MEDS: Aspirin Enteric Coated 81 MG Tablet PO SCH (08:02)
[2021-11-12] MEDS: Gabapentin 300 MG CAPSULE PO SCH (08:02)
[2021-11-12] MEDS: Sennosides/Docusate Sodium TABLET PO SCH (08:03)
[2021-11-12] MEDS: Famotidine 20 MG TABLET PO SCH (08:03)
[2021-11-12] MEDS: lisinopriL 20 MG TABLET PO SCH (08:03)
[2021-11-12] MEDS: *HR* Metformin 500 MG TABLET PO SCH (08:03)
[2021-11-12] MEDS: Insulin LISPRO 300 UNITS/3 ML VIAL SUBQ SCH ×2 (08:10→11:49)
[2021-11-12 11:05] VITALS: BP 139/86; PULSE 83; TEMP 98.4
[2021-11-12] MEDS ORDERED: FLU Vac QV 21-22 (6Month+)/PF 0.5 ML SYRINGE IM ONE (11:28)
== END 2021-11-12 12:59 | disposition home or self-care (01) | DRG 165 ==
LOC: SAMDAY 06:58 → ICNU 14:21 → 2NNU 11-11 21:30
PROVIDERS: ADMIT Thoracic Surgery (Cardiothoracic Vascular Surgery); ATTEND Thoracic Surgery (Cardiothoracic Vascular Surgery)

== ENCOUNTER 2022-04-09 11:05 | Inpatient (IN) ==
[2022-04-09] MEDS ORDERED: 0.9 % Sodium Chloride 1,000 ML IVC ONE (11:19)
[2022-04-09] MEDS ORDERED: Ipratropium/Albuterol Neb 3 ML IH ONE (11:19)
[2022-04-09] MEDS ORDERED: methylPREDNISolone 125 MG/2 ML VIAL IVP ONE (11:19)
[2022-04-09] MEDS ORDERED: Iopamidol - 370 500 ML MLS IVP ONE (11:19)
[2022-04-09 11:46] LABS: ABG Base Excess -1 mEq/L (-2 to 3); ABG HCO3 23 mEq/L (21-27); ABG Oxygen Saturation 96 % (95-98); ABG PCO2 36 mmHg (35-45); ABG PH 7.43 pH Units (7.32-7.45); ABG PO2 76 mmHg (85-104); ABG TCO2 25 mEq/L (20-26)
[2022-04-09 11:47] LABS: Basophils % 0.3 %; Eosinophils # 0.1 K/mcL (0.0-0.6); Eosinophils % 1.6 %; Hematocrit 31.3 % (37.5-50.1); Hemoglobin 10.3 g/dL (12.9-16.9); Immature Granulocytes % 0.5 % (0-4); Lymphocytes # 1.4 K/mcL (0.6-4.6); Lymphocytes % 16.2 %; Mean Corpuscular HGB Conc 32.9 g/dL (31.6-35.5); Mean Corpuscular Hemoglobin 31.6 pg (28.0-33.3); Mean Platelet Volume 8.7 fL (9.4-12.4); Monocytes # 0.7 K/mcL (0.0-1.3); Monocytes % 8.1 %; Neutrophils # 6.4 K/mcL (1.6-8.9); Platelet Count 245 K/mcL (140-400); Red Blood Count 3.26 M/mcL (4.19-5.50); Red Cell Distribution Width 15.9 % (11.5-14.5); Segmented Neutrophils % 73.3 %; White Blood Count 8.8 K/mcL (4.3-11.1)
[2022-04-09 12:12] LABS: BUN/Creatinine Ratio 30 (6-26); Blood Urea Nitrogen 22 mg/dL (8-23); Calcium 9.5 mg/dL (8.6-10.3); Carbon Dioxide 25 mEq/L (23-29); Chloride 99 mEq/L (98-107); Glucose 191 mg/dL (70-105); Osmolality,Calculated 288 (280-300); Sodium 135 mEq/L (136-145); Troponin I < 0.03 ng/mL (< 0.04); eGFR For African Americans > 60 (> 60); eGFR For Non-African Americans > 60 (> 60)
[2022-04-09] MEDS ORDERED: levoFLOXacin 750 MG/150 ML 750 MG/150 ML BAG IVPB ONE (13:16)
[2022-04-09] MEDS ORDERED: Acetaminophen 325 MG TABLET PO PRN (13:47)
[2022-04-09] MEDS ORDERED: Naloxone 0.4 MG/ML INJ IVP PRN (13:47)
[2022-04-09] MEDS ORDERED: Ondansetron 4 MG/2 ML VIAL IVP PRN (13:47)
[2022-04-09] MEDS ORDERED: *HR* Dextrose 50 % in Water (Syg) 50 ML SYRINGE IVP PRN (13:51)
[2022-04-09] MEDS ORDERED: D5% in Water 1,000 ML IVC PRN (13:51)
[2022-04-09] MEDS ORDERED: Dextrose Gel 15 GM/37.5 ML TUBE PO PRN ×2 (13:51)
[2022-04-09] MEDS: Ipratropium/Albuterol Neb 3 ML IH SCH ×2 (15:20→20:24)
[2022-04-09] MEDS: metroNIDAZOLE 500 MG TABLET PO SCH ×2 (15:31→19:50)
[2022-04-09] MEDS: MethylPREDNISolone 40 MG/ML VIAL IVP SCH (15:31)
[2022-04-09 16:18] LABS: INR 1.2; Prothrombin Time 13.6 Seconds (9.4-12.1)
[2022-04-09 16:39] LABS: Adenovirus Not Detected (Not Detect); Bordetella Pertussis Not Detected (Not Detect); Chlamydophila pneumoniae Not Detected (Not Detect); Coronavirus 229E Not Detected (Not Detect); Coronavirus HKU1 Not Detected (Not Detect); Coronavirus NL63 Not Detected (Not Detect); Coronavirus OC43 Not Detected (Not Detect); Human Metapneumovirus Not Detected (Not Detect); Human Rhinovirus/Enterovirus Not Detected (Not Detect); Influenza A Subtype 2009 H1 Not Detected (Not Detect); Influenza B Not Detected (Not Detect); Mycoplasma pneumoniae Not Detected (Not Detect); Parainfluenza Virus 1 Not Detected (Not Detect); Parainfluenza Virus 2 Not Detected (Not Detect); Parainfluenza Virus 3 Not Detected (Not Detect); Parainfluenza Virus 4 Not Detected (Not Detect); Respiratory Syncytial Virus Not Detected (Not Detect); SARS-CoV-2 Not Detected (Not Detect)
[2022-04-09] MEDS: Insulin LISPRO 300 UNITS/3 ML VIAL SUBQ SCH (18:05)
[2022-04-09] MEDS: Budesonide/Formoterol 160/4.5 1 PUFF INH IH SCH (20:24)
[2022-04-09] MEDS ORDERED: Fluticasone Propionate Nasal 50 MCG/SPRAY BOTTLE NS PRN (22:16)
[2022-04-09] MEDS ORDERED: OLANZapine 5 MG TAB.RAPDIS PO PRN (22:30)
[2022-04-09] MEDS: Gabapentin 300 MG CAPSULE PO SCH ×2 (22:40→22:45)
[2022-04-10] MEDS: MethylPREDNISolone 40 MG/ML VIAL IVP SCH ×2 (00:10→08:42)
[2022-04-10] MEDS: Ipratropium/Albuterol Neb 3 ML IH SCH ×7 (00:14→23:14)
[2022-04-10 05:45] LABS: Basophils % 0.1 %; Hematocrit 26.5 % (37.5-50.1); Hemoglobin 8.8 g/dL (12.9-16.9); Immature Granulocytes % 0.5 % (0-4); Lymphocytes # 0.7 K/mcL (0.6-4.6); Lymphocytes % 7.5 %; Mean Corpuscular HGB Conc 33.2 g/dL (31.6-35.5); Mean Corpuscular Hemoglobin 31.5 pg (28.0-33.3); Monocytes # 0.2 K/mcL (0.0-1.3); Neutrophils # 8.8 K/mcL (1.6-8.9); Platelet Count 243 K/mcL (140-400); Red Blood Count 2.79 M/mcL (4.19-5.50); Red Cell Distribution Width 15.7 % (11.5-14.5); Segmented Neutrophils % 89.9 %; White Blood Count 9.8 K/mcL (4.3-11.1)
[2022-04-10 06:08] LABS: BUN/Creatinine Ratio 31 (6-26); Blood Urea Nitrogen 22 mg/dL (8-23); Calcium 9.1 mg/dL (8.6-10.3); Carbon Dioxide 24 mEq/L (23-29); Chloride 99 mEq/L (98-107); Glucose 188 mg/dL (70-105); Magnesium 1.8 mg/dL (1.6-2.6); Osmolality,Calculated 282 (280-300); Phosphorous 4.5 mg/dL (2.7-4.5); Potassium 4.5 mEq/L (3.5-5.1); Sodium 132 mEq/L (136-145); eGFR For African Americans > 60 (> 60); eGFR For Non-African Americans > 60 (> 60)
[2022-04-10] MEDS: Budesonide/Formoterol 160/4.5 1 PUFF INH IH SCH (07:12)
[2022-04-10] MEDS: Insulin LISPRO 300 UNITS/3 ML VIAL SUBQ SCH ×2 (08:41→13:12)
[2022-04-10] MEDS: Gabapentin 300 MG CAPSULE PO SCH (08:42)
[2022-04-10] MEDS: metroNIDAZOLE 500 MG TABLET PO SCH (08:43)
[2022-04-10] MEDS ORDERED: levoFLOXacin 750 MG/150 ML 750 MG/150 ML BAG IVPB SCH ×2 (09:00→13:00)
[2022-04-10] MEDS ORDERED: *HR* Propofol 200 MG/20 ML VIAL IVP ONE ×3 (11:49→13:32)
[2022-04-10] MEDS ORDERED: Ondansetron 4 MG/2 ML VIAL ONE (11:49)
[2022-04-10] MEDS ORDERED: *HR* FentaNYL (PF) 100 MCG/2 ML VIAL ONE ×2 (11:49→14:57)
[2022-04-10] MEDS ORDERED: *HR* Rocuronium Bromide 50 MG/5 ML VIAL ONE ×2 (11:49→16:48)
[2022-04-10] MEDS ORDERED: Lidocaine -MPF 2% 2 ML VIAL ONE (11:49)
[2022-04-10] MEDS ORDERED: *HR* Succinylcholine 200 MG/10 ML VIAL IVP ONE (11:49)
[2022-04-10] MEDS ORDERED: *HR* Midazolam HCl 2 MG/2 ML VIAL ONE (13:10)
[2022-04-10] MEDS ORDERED: *HR* EPINEPHrine 1 MG/10 ML SYRINGE ONE (13:39)
[2022-04-10] MEDS ORDERED: *HR* Phenylephrine 10 MG/ML VIAL ONE ×2 (13:44→14:02)
[2022-04-10] MEDS ORDERED: EPHEDrine 50 MG/ML VIAL ONE (13:47)
[2022-04-10] MEDS ORDERED: *HR* EPINEPHrine 1 MG/10 ML SYRINGE INTRATRACH PRN (13:49)
[2022-04-10] MEDS ORDERED: Heparin 1,000 UNITS/500 mL 500 ML ONE (13:52)
[2022-04-10] MEDS: Ringers Solution, Lactated 1,000 ML IVC SCH ×2 (14:00→14:01)
[2022-04-10] MEDS ORDERED: Ketamine HCL *QUVA* 50mg (1mL) SYRINGE ONE (14:17)
[2022-04-10] MEDS ORDERED: Albumin Human 5% 25.0 GM/500 ML IV.SOLN ONE (14:17)
[2022-04-10] MEDS ORDERED: *HR* Vasopressin 20 UNIT/ML VIAL ONE (14:57)
[2022-04-10] MEDS ORDERED: *HR* HYDROMORPHONE 2 MG/ML VIAL ONE (16:48)
[2022-04-10] MEDS ORDERED: *HR* HYDROcodone/Acet 5/325 mg TABLET PO PRN (17:53)
[2022-04-10] MEDS ORDERED: 0.9 % Sodium Chloride 1,000 ML IVC SCH (18:00)
[2022-04-10] MEDS ORDERED: Naloxone 0.4 MG/ML INJ IVP PRN (18:07)
[2022-04-10] MEDS ORDERED: OLANZapine 5 MG TAB.RAPDIS PO PRN (18:07)
[2022-04-10] MEDS ORDERED: Ondansetron 4 MG/2 ML VIAL IVP PRN (18:07)
[2022-04-10] MEDS ORDERED: D5% in Water 1,000 ML IVC PRN (18:07)
[2022-04-10] MEDS ORDERED: *HR* Dextrose 50 % in Water (Syg) 50 ML SYRINGE IVP PRN (18:07)
[2022-04-10] MEDS ORDERED: Dextrose Gel 15 GM/37.5 ML TUBE PO PRN ×2 (18:07)
[2022-04-10 20:19] LABS: Appearance of Body Fluid Hazy (Clear)
[2022-04-10 20:20] LABS: Volume of Body Fluid 12 mL
[2022-04-10] MEDS ORDERED: metroNIDAZOLE 500 MG TABLET PO SCH (21:00)
[2022-04-10] MEDS ORDERED: Gabapentin 300 MG CAPSULE PO SCH (21:00)
[2022-04-10] MEDS ORDERED: Sennosides/Docusate Sodium TABLET PO SCH (21:00)
[2022-04-10] MEDS ORDERED: Budesonide/Formoterol 160/4.5 1 PUFF INH IH SCH (22:00)
[2022-04-10] MEDS: Acetaminophen 325 MG TABLET PO PRN (23:02)
[2022-04-10 23:14] LABS: Hematocrit 25.8 % (37.5-50.1); Hemoglobin 8.6 g/dL (12.9-16.9); Mean Corpuscular HGB Conc 33.3 g/dL (31.6-35.5); Mean Corpuscular Volume 93.1 fL (83.0-100.0); Mean Platelet Volume 8.7 fL (9.4-12.4); Platelet Count 255 K/mcL (140-400); Red Blood Count 2.77 M/mcL (4.19-5.50); Red Cell Distribution Width 15.5 % (11.5-14.5)
[2022-04-10 23:16] LABS: White Blood Count 19.3 K/mcL (4.3-11.1)
[2022-04-11] MEDS: Acetaminophen 325 MG TABLET PO PRN (02:31)
[2022-04-11] MEDS: Ipratropium/Albuterol Neb 3 ML IH SCH ×7 (03:36→23:24)
[2022-04-11 05:26] LABS: Basophils % 0.1 %; Hematocrit 25.2 % (37.5-50.1); Hemoglobin 8.3 g/dL (12.9-16.9); Immature Granulocytes % 0.4 % (0-4); Lymphocytes # 1.1 K/mcL (0.6-4.6); Lymphocytes % 6.8 %; Mean Corpuscular HGB Conc 32.9 g/dL (31.6-35.5); Mean Corpuscular Hemoglobin 30.9 pg (28.0-33.3); Mean Corpuscular Volume 93.7 fL (83.0-100.0); Mean Platelet Volume 9.1 fL (9.4-12.4); Monocytes # 0.9 K/mcL (0.0-1.3); Monocytes % 5.5 %; Neutrophils # 14.3 K/mcL (1.6-8.9); Platelet Count 276 K/mcL (140-400); Red Blood Count 2.69 M/mcL (4.19-5.50); Red Cell Distribution Width 15.8 % (11.5-14.5); Segmented Neutrophils % 87.2 %; White Blood Count 16.4 K/mcL (4.3-11.1)
[2022-04-11 06:14] LABS: BUN/Creatinine Ratio 42 (6-26); Blood Urea Nitrogen 25 mg/dL (8-23); Calcium 8.6 mg/dL (8.6-10.3); Carbon Dioxide 27 mEq/L (23-29); Chloride 100 mEq/L (98-107); Glucose 140 mg/dL (70-105); Magnesium 1.8 mg/dL (1.6-2.6); Osmolality,Calculated 283 (280-300); Potassium 4.3 mEq/L (3.5-5.1); Sodium 133 mEq/L (136-145); eGFR For African Americans > 60 (> 60); eGFR For Non-African Americans > 60 (> 60)
[2022-04-11] MEDS ORDERED: *HR* HYDROcodone/Acet 5/325 mg TABLET PO PRN ×2 (07:27→08:08)
[2022-04-11] MEDS ORDERED: 0.9 % Sodium Chloride 1,000 ML IVC SCH (07:30)
[2022-04-11] MEDS ORDERED: Insulin LISPRO 300 UNITS/3 ML VIAL SUBQ SCH (07:30)
[2022-04-11] MEDS ORDERED: Ondansetron 4 MG/2 ML VIAL IVP PRN (08:08)
[2022-04-11] MEDS ORDERED: OLANZapine 5 MG TAB.RAPDIS PO PRN (08:08)
[2022-04-11] MEDS ORDERED: D5% in Water 1,000 ML IVC PRN (08:08)
[2022-04-11] MEDS ORDERED: Naloxone 0.4 MG/ML INJ IVP PRN (08:08)
[2022-04-11] MEDS ORDERED: *HR* Dextrose 50 % in Water (Syg) 50 ML SYRINGE IVP PRN (08:08)
[2022-04-11] MEDS ORDERED: Acetaminophen 325 MG TABLET PO PRN (08:08)
[2022-04-11] MEDS ORDERED: Dextrose Gel 15 GM/37.5 ML TUBE PO PRN ×2 (08:08)
[2022-04-11] MEDS: Budesonide/Formoterol 160/4.5 1 PUFF INH IH SCH ×3 (08:12→20:11)
[2022-04-11] MEDS ORDERED: 0.9 % Sodium Chloride 1,000 ML ONE (08:14)
[2022-04-11] MEDS ORDERED: Lisinopril-HCTZ 20-12.5mg TABLET PO SCH ×4 (09:00)
[2022-04-11] MEDS: levoFLOXacin 750 MG/150 ML 750 MG/150 ML BAG IVPB SCH (09:16)
[2022-04-11] MEDS: 0.9 % Sodium Chloride 1,000 ML IVC SCH ×2 (09:17→22:04)
[2022-04-11] MEDS: Gabapentin 300 MG CAPSULE PO SCH ×3 (09:17→19:54)
[2022-04-11] MEDS: Ketorolac 30 MG/ML VIAL IVP SCH ×3 (11:33→23:31)
[2022-04-11] MEDS: Insulin LISPRO 300 UNITS/3 ML VIAL SUBQ SCH ×2 (11:40→17:30)
[2022-04-11] MEDS ORDERED: Ketorolac 30 MG/ML VIAL IVP SCH (12:00)
[2022-04-11] MEDS ORDERED: levoFLOXacin 750 MG/150 ML 750 MG/150 ML BAG IVPB SCH ×2 (13:00)
[2022-04-12] MEDS: Ipratropium/Albuterol Neb 3 ML IH SCH ×6 (04:01→23:56)
[2022-04-12] MEDS: Ketorolac 30 MG/ML VIAL IVP SCH ×3 (05:38→18:12)
[2022-04-12] MEDS: Budesonide/Formoterol 160/4.5 1 PUFF INH IH SCH ×2 (07:08→20:02)
[2022-04-12] MEDS: Insulin LISPRO 300 UNITS/3 ML VIAL SUBQ SCH ×4 (07:42→16:39)
[2022-04-12] MEDS: Gabapentin 300 MG CAPSULE PO SCH ×4 (07:43→20:44)
[2022-04-12] MEDS: MethylPREDNISolone 40 MG/ML VIAL IVP SCH (07:43)
[2022-04-12] MEDS: metroNIDAZOLE 500 MG TABLET PO SCH (07:44)
[2022-04-12] MEDS: levoFLOXacin 750 MG/150 ML 750 MG/150 ML BAG IVPB SCH (08:17)
[2022-04-12 09:45] LABS: Eosinophils # 0.1 K/mcL (0.0-0.6); Eosinophils % 0.8 %; Hematocrit 23.1 % (37.5-50.1); Hemoglobin 7.4 g/dL (12.9-16.9); Immature Granulocytes % 0.3 % (0-4); Lymphocytes # 1.2 K/mcL (0.6-4.6); Mean Corpuscular Hemoglobin 31.2 pg (28.0-33.3); Mean Corpuscular Volume 97.5 fL (83.0-100.0); Mean Platelet Volume 8.7 fL (9.4-12.4); Monocytes # 0.5 K/mcL (0.0-1.3); Monocytes % 6.7 %; Neutrophils # 5.5 K/mcL (1.6-8.9); Platelet Count 210 K/mcL (140-400); Red Blood Count 2.37 M/mcL (4.19-5.50); Red Cell Distribution Width 16.3 % (11.5-14.5); Segmented Neutrophils % 75.2 %
[2022-04-12 10:00] LABS: White Blood Count 7.3 K/mcL (4.3-11.1)
[2022-04-12 10:10] LABS: BUN/Creatinine Ratio 32 (6-26); Blood Urea Nitrogen 30 mg/dL (8-23); Carbon Dioxide 25 mEq/L (23-29); Chloride 103 mEq/L (98-107); Glucose 187 mg/dL (70-105); Osmolality,Calculated 291 (280-300); Potassium 3.7 mEq/L (3.5-5.1); Sodium 135 mEq/L (136-145); eGFR For African Americans > 60 (> 60); eGFR For Non-African Americans > 60 (> 60)
[2022-04-12] MEDS ORDERED: Potassium Chloride Elixir 20 MEQ/15 ML UDC PO ONE (11:14)
[2022-04-12] MEDS ORDERED: Ringers Solution, Lactated 1,000 ML ONE (11:15)
[2022-04-12] MEDS ORDERED: Albumin Human 5% 25.0 GM/500 ML IV.SOLN ONE (11:17)
[2022-04-12] MEDS: Albumin Human 5% 12.5 GM/250 ML IV.SOLN IVC SCH ×2 (11:27→11:54)
[2022-04-12] MEDS ORDERED: Albumin Human 5% 12.5 GM/250 ML IV.SOLN IVPB ONE (13:28)
[2022-04-12 14:19] LABS: Hemoglobin 6.6 g/dL (12.9-16.9); Mean Corpuscular HGB Conc 31.4 g/dL (31.6-35.5); Mean Corpuscular Hemoglobin 30.7 pg (28.0-33.3); Mean Corpuscular Volume 97.7 fL (83.0-100.0); Mean Platelet Volume 8.7 fL (9.4-12.4); Platelet Count 198 K/mcL (140-400); Red Blood Count 2.15 M/mcL (4.19-5.50); Red Cell Distribution Width 15.9 % (11.5-14.5); White Blood Count 7.2 K/mcL (4.3-11.1)
[2022-04-12] MEDS ORDERED: 0.9 % Sodium Chloride 250 ML ONE (15:50)
[2022-04-12 21:06] LABS: Hemoglobin 7.9 g/dL (12.9-16.9)
[2022-04-13] MEDS: Ketorolac 30 MG/ML VIAL IVP SCH ×5 (00:04→23:56)
[2022-04-13] MEDS: Ipratropium/Albuterol Neb 3 ML IH SCH ×6 (04:25→23:53)
[2022-04-13 04:31] LABS: Hematocrit 26.2 % (37.5-50.1); Hemoglobin 8.5 g/dL (12.9-16.9); Mean Corpuscular HGB Conc 32.4 g/dL (31.6-35.5); Mean Corpuscular Hemoglobin 30.6 pg (28.0-33.3); Mean Corpuscular Volume 94.2 fL (83.0-100.0); Mean Platelet Volume 8.7 fL (9.4-12.4); Platelet Count 202 K/mcL (140-400); Red Blood Count 2.78 M/mcL (4.19-5.50); Red Cell Distribution Width 18.2 % (11.5-14.5); White Blood Count 8.2 K/mcL (4.3-11.1)
[2022-04-13 04:37] LABS: Alanine Aminotransferase 25 Units/L (7-52); Albumin 3.2 g/dL (3.5-5.7); Albumin/Globulin Ratio 1.6 (1.1-2.2); Alkaline Phosphatase 79 Units/L (34-104); Aspartate Amino Transferase 31 Units/L (13-39); BUN/Creatinine Ratio 33 (6-26); Bilirubin,Direct 0.2 mg/dL (0.0-0.2); Bilirubin,Indirect 0.4 mg/dL (0.0-1.0); Bilirubin,Total 0.6 mg/dL (0.3-1.0); Blood Urea Nitrogen 23 mg/dL (8-23); Calcium 8.2 mg/dL (8.6-10.3); Carbon Dioxide 27 mEq/L (23-29); Chloride 104 mEq/L (98-107); Glucose 125 mg/dL (70-105); Magnesium 1.7 mg/dL (1.6-2.6); Osmolality,Calculated 289 (280-300); Potassium 4.1 mEq/L (3.5-5.1); Sodium 137 mEq/L (136-145); Total Protein 5.2 g/dL (6.4-8.9); eGFR For African Americans > 60 (> 60); eGFR For Non-African Americans > 60 (> 60)
[2022-04-13] MEDS: Budesonide/Formoterol 160/4.5 1 PUFF INH IH SCH ×2 (07:32→20:28)
[2022-04-13] MEDS: Insulin LISPRO 300 UNITS/3 ML VIAL SUBQ SCH ×3 (08:14→16:19)
[2022-04-13] MEDS: Gabapentin 300 MG CAPSULE PO SCH ×3 (08:14→20:08)
[2022-04-13] MEDS: levoFLOXacin 750 MG/150 ML 750 MG/150 ML BAG IVPB SCH (08:15)
[2022-04-14 03:49] LABS: Hematocrit 27.3 % (37.5-50.1); Hemoglobin 8.8 g/dL (12.9-16.9); Mean Corpuscular HGB Conc 32.2 g/dL (31.6-35.5); Mean Corpuscular Hemoglobin 30.6 pg (28.0-33.3); Mean Corpuscular Volume 94.8 fL (83.0-100.0); Mean Platelet Volume 8.6 fL (9.4-12.4); Platelet Count 199 K/mcL (140-400); Red Blood Count 2.88 M/mcL (4.19-5.50); Red Cell Distribution Width 17.7 % (11.5-14.5); White Blood Count 8.6 K/mcL (4.3-11.1)
[2022-04-14] MEDS: Ipratropium/Albuterol Neb 3 ML IH SCH ×6 (04:04→23:04)
[2022-04-14 04:10] LABS: BUN/Creatinine Ratio 28 (6-26); Blood Urea Nitrogen 19 mg/dL (8-23); Calcium 8.6 mg/dL (8.6-10.3); Carbon Dioxide 28 mEq/L (23-29); Chloride 102 mEq/L (98-107); Glucose 143 mg/dL (70-105); Osmolality,Calculated 285 (280-300); Potassium 4.5 mEq/L (3.5-5.1); Sodium 135 mEq/L (136-145); eGFR For African Americans > 60 (> 60); eGFR For Non-African Americans > 60 (> 60)
[2022-04-14] MEDS: Ketorolac 30 MG/ML VIAL IVP SCH ×4 (05:10→23:53)
[2022-04-14] MEDS: Budesonide/Formoterol 160/4.5 1 PUFF INH IH SCH ×2 (07:37→19:52)
[2022-04-14] MEDS: Insulin LISPRO 300 UNITS/3 ML VIAL SUBQ SCH ×3 (08:51→16:36)
[2022-04-14] MEDS: levoFLOXacin 750 MG/150 ML 750 MG/150 ML BAG IVPB SCH (08:52)
[2022-04-14] MEDS: Gabapentin 300 MG CAPSULE PO SCH ×3 (08:52→20:16)
[2022-04-14] MEDS ORDERED: Sennosides/Docusate Sodium TABLET PO PRN (23:54)
[2022-04-15] MEDS: Ipratropium/Albuterol Neb 3 ML IH SCH ×3 (04:12→11:19)
[2022-04-15] MEDS: Ketorolac 30 MG/ML VIAL IVP SCH (05:11)
[2022-04-15 05:13] LABS: Hematocrit 28.3 % (37.5-50.1); Hemoglobin 8.9 g/dL (12.9-16.9); Mean Corpuscular HGB Conc 31.4 g/dL (31.6-35.5); Mean Corpuscular Hemoglobin 30.1 pg (28.0-33.3); Mean Corpuscular Volume 95.6 fL (83.0-100.0); Platelet Count 214 K/mcL (140-400); Red Blood Count 2.96 M/mcL (4.19-5.50); Red Cell Distribution Width 17.3 % (11.5-14.5); White Blood Count 8.7 K/mcL (4.3-11.1)
[2022-04-15 05:35] LABS: BUN/Creatinine Ratio 27 (6-26); Blood Urea Nitrogen 19 mg/dL (8-23); Calcium 8.5 mg/dL (8.6-10.3); Carbon Dioxide 29 mEq/L (23-29); Chloride 100 mEq/L (98-107); Glucose 103 mg/dL (70-105); Osmolality,Calculated 281 (280-300); Potassium 4.5 mEq/L (3.5-5.1); Sodium 134 mEq/L (136-145); eGFR For African Americans > 60 (> 60); eGFR For Non-African Americans > 60 (> 60)
[2022-04-15] MEDS: Budesonide/Formoterol 160/4.5 1 PUFF INH IH SCH (07:17)
[2022-04-15] MEDS: Gabapentin 300 MG CAPSULE PO SCH (08:48)
[2022-04-15] MEDS: levoFLOXacin 750 MG/150 ML 750 MG/150 ML BAG IVPB SCH (08:48)
[2022-04-15] MEDS: Insulin LISPRO 300 UNITS/3 ML VIAL SUBQ SCH ×2 (08:49→11:56)
[2022-04-15 11:30] VITALS: BP 122/78; PULSE 84; TEMP 97.9; O2SAT 98
== END 2022-04-15 14:30 | disposition home or self-care (01) | DRG 163 ==
LOC: EMEROOARM 11:05 → 3NENU 11:05 → SUATTDRO 18:38 → ICNU 04-10 17:50 → 2NNU 04-11 21:27
PROVIDERS: ADMIT Hospitalist; ATTEND Family Medicine
PROC: ENDOBRF (2022-04-10 10:30)